=== PATIENT | female | born 1970 | race Caucasian/White ===

== ENCOUNTER 2019-02-16 17:19 | Emergency (ER) | payer MEDICAID ==
[~2019-02-16] VITALS: Ht 172.7 cm; Wt 129.6 kg
[~2019-02-16 17:19] MED LIST: BACDS PO; HYDR1TAB10 PO; NO HOME MEDS; POTA20TA19 PO; ZOF4T PO
[2019-02-16] MEDS ORDERED: ketorolac trometh. 30mg/ml inj. IM ONE (19:45)
[2019-02-16] MEDS ORDERED: orphenadrine citrate 60mg/2ml inj. IM ONE (19:55)
[2019-02-16] MEDS ORDERED: IBUP-1984 PO (20:48)
[2019-02-16] MEDS ORDERED: ORPH100T2 PO (20:48)
[2019-02-16 21:10] VITALS: BP 137/72
== END 2019-02-16 21:15 | disposition home or self-care (01) ==
LOC: ER 17:19
DX: M54.5 Low back pain (principal); Z88.0 Allergy status to penicillin; Z88.5 Allergy status to narcotic agent; Z88.6 Allergy status to analgesic agent
CPT/HCPCS: 72100; 96372; 99284; J1885; J2360

== ENCOUNTER 2021-07-18 16:35 | Inpatient (IN) | payer MEDICAID ==
[~2021-07-18] VITALS: Ht 172.7 cm; Wt 143.2 kg
[~2021-07-18 16:35] MED LIST changes: +ORPH100T2 PO; +POTA-207 PO; -POTA20TA19 PO; +iohexol 350MG/ML 100ml bottle IV ONE
[2021-07-18] MEDS ORDERED: ondansetron/PF 4mg/2ml inj IV ONE (17:10)
[2021-07-18] MEDS ORDERED: normal saline 1000ML IV soln IVB ONE (17:10)
[2021-07-18] MEDS ORDERED: normal saline 1000ml 1,000 ML IV ONE ×2 (17:10→19:50)
[2021-07-18] MEDS ORDERED: magnesium 2GM in 50ml NS 50 ML IV ONE (17:10)
[2021-07-18 17:33] LABS: CLARITY,URINE CLOUDY (Clear); COLOR,URINE YELLOW (Yellow); GLUCOSE, URINE NEGATIVE (Neg); KETONES,URINE 40 mg/dl (Neg); LEUKOCYTE ESTERASE ,URINE SMALL (Neg); NITRITES, URINE POSITIVE (Neg); OCCULT BLOOD,URINE NEGATIVE (Neg); PH,URINE 6.5 (4.8-8.0); PROTEIN,URINE 30 mg/dl (Neg)
[2021-07-18 17:45] LABS: UA COLLECTION TYPE STRAIGHT CATH
[2021-07-18 17:46] LABS: URINE AMPHETAMINE SCREEN NEGATIVE (Neg); URINE BARBITUATE SCREEN NEGATIVE (Neg); URINE BENZODIAZEPINES SCREEN NEGATIVE (Neg); URINE CANNABINOID SCREEN POSITIVE (Neg); URINE COCAINE SCREEN NEGATIVE (Neg); URINE METHADONE SCREEN NEGATIVE (Neg); URINE OPIATE SCREEN NEGATIVE (Neg); URINE PHENCYCLIDINE SCREEN NEGATIVE (Neg)
[2021-07-18 18:01] LABS: HYALINE CASTS >30 /LPF (NEGATIVE)
[2021-07-18 18:02] LABS: SQUAMOUS EPITHELIAL CELL,UR MODERATE /LPF (FEW); WBC,URINE 20-30 /HPF (0-4)
[2021-07-18 18:03] LABS: BACTERIA,URINE 3+ /HPF (Neg)
[2021-07-18 18:14] LABS: BASOPHILS % (AUTO) 0.3 % (0-1); EOSINOPHILS # (AUTO) 0.2 X10'3 (0-0.9); EOSINOPHILS % (AUTO) 2.4 % (0-6); HEMATOCRIT 33.9 % (35.0-45.0); HEMOGLOBIN 11.5 g/dl (12.0-16.0); LYMPHOCYTES # (AUTO) 0.7 X10'3 (1.1-4.8); MEAN CORPUSCULAR HEMOGLOBIN 29.1 PG (27.0-31.0); MEAN CORPUSCULAR HGB CONC 33.8 g/dL (33.0-36.5); MEAN CORPUSCULAR VOLUME 85.9 FL (78-98); MEAN PLATELET VOLUME 9.5 FL (7.4-10.4); MONOCYTES # (AUTO) 0.9 X10'3 (0-0.9); MONOCYTES % (AUTO) 9.4 % (2-12); NEUTROPHILS # (AUTO) 7.8 X10'3 (1.8-7.7); NEUTROPHILS % (AUTO) 80.9 % (42-75); PLATELET COUNT 204 X10'3 (140-440); RED BLOOD COUNT 3.95 X10'6 (4.20-5.60); RED CELL DISTRIBUTION WIDTH 13.6 % (11.5-14.5); WHITE BLOOD COUNT 9.6 X10'3 (4.5-11.0)
[2021-07-18 18:29] LABS: APTT 23 SECONDS (22-32); D-DIMER 7.53 MG/L FEU (0-0.50)
[2021-07-18 18:38] LABS: ALANINE AMINOTRANSFERASE 23 U/L (12-78); ALBUMIN 2.9 G/DL (3.4-5.0); ALBUMIN/GLOBULIN RATIO 0.7 (1.1-1.5); ALKALINE PHOSPHATASE 93 IU/L (46-116); ANION GAP 12 (8-16); ASPARTATE AMINO TRANSFERASE 17 U/L (10-37); BILIRUBIN,TOTAL 0.8 MG/DL (0.1-1.0); BLOOD UREA NITROGEN 14 MG/DL (7-18); BUN/CREATININE RATIO 20.6 (6.6-38.0); C-REACTIVE PROTEIN 2.76 MG/DL (0.0-0.5); CALCIUM 8.8 MG/DL (8.5-10.1); CHLORIDE 105 MMOL/L (99-107); CREATININE 0.68 MG/DL (0.40-0.90); GLUCOSE 92 MG/DL (70-104); LIPASE 67 U/L (73-393); MAGNESIUM 2.6 MG/DL (1.5-2.4); POTASSIUM 3.4 MMOL/L (3.5-5.1); SODIUM 139 MMOL/L (135-145); TOTAL CARBON DIOXIDE 22.1 MMOL/L (24-32); TOTAL PROTEIN 6.9 G/DL (6.4-8.2); eGFR > 90 ML/MIN
[2021-07-18] MEDS ORDERED: cefepime 1GM/NS ADD-VANTAGE 100 ML IV STA (21:21)
[2021-07-18] MEDS: potassium CL 10mEq/100ml bag 100 ML IV SCH (22:44)
[2021-07-18] MEDS ORDERED: magnesium 2GM in 50ml NS 50 ML IV PRN (22:45)
[2021-07-18] MEDS ORDERED: mag hydrox/Alum hydrox/simeth 30ml oral suspension PO PRN (22:45)
[2021-07-18] MEDS ORDERED: magnesium 4gm in 100ml NS 100 ML IV PRN (22:45)
[2021-07-18] MEDS ORDERED: potassium CL 10mEq/100ml bag 100 ML IV PRN (22:45)
[2021-07-18] MEDS ORDERED: ondansetron/PF 4mg/2ml inj IV PRN (22:45)
[2021-07-18] MEDS ORDERED: PERFLUTREN PROTEIN-A MICROSPHR (Optison) 0.22 MG/ML 3ML VIAL IV ONE (22:45)
[2021-07-18] MEDS ORDERED: magnesium Cl slow-release 64mg tablet PO PRN (22:45)
[2021-07-18] MEDS ORDERED: POTASSIUM BICARB 20meq eff tab 20 MEQ TABLET.EFF PO PRN (22:45)
[2021-07-18] MEDS ORDERED: magnesium hydroxide 30ml (MOM) UD suspension PO PRN (22:45)
[2021-07-18] MEDS ORDERED: cefTRIAXone 1g/NS 100ml IVPB 100 ML IV ONE (22:50)
[2021-07-18 23:12] LABS: MAGNESIUM 2.1 MG/DL (1.5-2.4); POTASSIUM 3.7 MMOL/L (3.5-5.1)
[2021-07-19] MEDS: potassium CL 10mEq/100ml bag 100 ML IV SCH (00:14)
[2021-07-19 00:59] VITALS: BP 129/54
[2021-07-19 01:50] LABS: BASOPHILS % (AUTO) 0.2 % (0-1); EOSINOPHILS # (AUTO) 0.1 X10'3 (0-0.9); EOSINOPHILS % (AUTO) 1.2 % (0-6); HEMATOCRIT 32.3 % (35.0-45.0); HEMOGLOBIN 10.9 g/dl (12.0-16.0); LYMPHOCYTES # (AUTO) 0.8 X10'3 (1.1-4.8); LYMPHOCYTES % (AUTO) 10.1 % (21-51); MEAN CORPUSCULAR HEMOGLOBIN 29.1 PG (27.0-31.0); MEAN CORPUSCULAR HGB CONC 33.8 g/dL (33.0-36.5); MEAN CORPUSCULAR VOLUME 86.1 FL (78-98); MEAN PLATELET VOLUME 9.2 FL (7.4-10.4); MONOCYTES # (AUTO) 0.8 X10'3 (0-0.9); MONOCYTES % (AUTO) 9.6 % (2-12); NEUTROPHILS # (AUTO) 6.3 X10'3 (1.8-7.7); NEUTROPHILS % (AUTO) 78.9 % (42-75); PLATELET COUNT 192 X10'3 (140-440); RED BLOOD COUNT 3.75 X10'6 (4.20-5.60); RED CELL DISTRIBUTION WIDTH 13.6 % (11.5-14.5); WHITE BLOOD COUNT 7.9 X10'3 (4.5-11.0)
[2021-07-19 02:05] LABS: ALANINE AMINOTRANSFERASE 18 U/L (12-78); ALBUMIN 2.7 G/DL (3.4-5.0); ALBUMIN/GLOBULIN RATIO 0.7 (1.1-1.5); ALKALINE PHOSPHATASE 89 IU/L (46-116); ANION GAP 8 (8-16); ASPARTATE AMINO TRANSFERASE 12 U/L (10-37); BILIRUBIN,TOTAL 0.4 MG/DL (0.1-1.0); BLOOD UREA NITROGEN 13 MG/DL (7-18); BUN/CREATININE RATIO 21.3 (6.6-38.0); CHLORIDE 106 MMOL/L (99-107); CREATININE 0.61 MG/DL (0.40-0.90); GLUCOSE 87 MG/DL (70-104); POTASSIUM 3.9 MMOL/L (3.5-5.1); SODIUM 136 MMOL/L (135-145); TOTAL CARBON DIOXIDE 22.2 MMOL/L (24-32); TOTAL PROTEIN 6.5 G/DL (6.4-8.2); eGFR > 90 ML/MIN
[2021-07-19 02:07] LABS: MAGNESIUM 1.8 MG/DL (1.5-2.4)
[2021-07-19] MEDS: sodium bicarbonate (8.4%) inj. 100 MEQ in dextrose 5%-water 1,000 ML IV SCH ×3 (02:46→20:50)
[2021-07-19] MEDS ORDERED: GABA600T13 PO (04:09)
[2021-07-19] MEDS ORDERED: FERR325T28 PO (04:09)
[2021-07-19] MEDS ORDERED: TIZA4TAB11 PO (04:09)
[2021-07-19] MEDS ORDERED: IBUP-1984 PO (04:09)
[2021-07-19] MEDS ORDERED: ALB0.5UD IH (04:09)
[2021-07-19] MEDS ORDERED: FERR324T PO (05:14)
[2021-07-19 06:00] VITALS: BP 124/62
[2021-07-19] MEDS: ferrous gluconate 324mg tablet PO SCH ×2 (08:00→23:01)
[2021-07-19 10:00] VITALS: BP 112/24
[2021-07-19] MEDS: gabapentin 300mg capsule PO SCH (10:30)
[2021-07-19] MEDS: cefTRIAXone 1g/NS 100ml IVPB 100 ML IV SCH (10:30)
[2021-07-19] MEDS: heparin, porcine 5000 units/ml vial SQ SCH ×2 (10:33→19:57)
--- NOTE | 2021-07-19 15:20 | NUR ---
PRESSURE ULCER EDUCATION: DEFINITION: A pressure ulcer is an area of skin that breaks down when you stay in one position too long. The constant pressure against the skin reduces the blood flow to that area and the affected tissue dies. CAUSES: "Being bedridden or in a wheelchair "Fragile skin "Having a chronic condition, such as diabetes or vascular disease "Inability to move certain parts of your body without assistance "Older age "Incontinence of urine or stool SYMPTOMS: "A reddened area that DOES NOT turn white when pressed on - this can be the beginning of a pressure ulcer "A blister, deep sore or a crater - these can be advanced pressure ulcers FIRST AID: "Relieve the pressure on this area "Keep the area clean and dry "Call your primary doctor if you see any of the above symptoms "DO NOT massage the area "DO NOT use a donut shaped or ring shaped pillow- these actually interfere with the blood flow and cause complications PREVENTION: "Check for pressure ulcers everyday "Change position at least every two hours to relieve pressure "Use items that help relieve pressure- pillows, sheepskin, foam padding, and powders. "Keep skin clean and dry "Eat healthy well balanced meals "Exercise daily IF YOU SEE ANY OF THESE SYMPTOMS WHILE IN THE HOSPITAL - TELL YOUR NURSE IMMEDIATELY. IF YOU SEE ANY OF THESE SYMPTOMS WHILE AT HOME OR HAVE ANY QUESTIONS OR CONCERNS ABOUT PRESSURE ULCERS - CALL YOUR PRIMARY DOCTOR IMMEDIATELY. Addendum: 07/19/21 at 1520 by Belgica Foley LVN Amended: Links added.
[2021-07-19] MEDS ORDERED: pneumococcal 23-VAL P-sac vacc 25 mcg/0.5ml vial IMVAC ONE (16:00)
[2021-07-19 18:00] VITALS: BP 94/42
--- NOTE | 2021-07-19 19:03 | NUR ---
Problems reprioritized. Patient report given, questions answered & plan of care reviewed with Ann Marie GRANADO.
[2021-07-19] MEDS: tizanidine 4mg tablet PO SCH (19:57)
[2021-07-19] MEDS: docusate sod 100mg capsule PO SCH ×2 (20:00→20:10)
[2021-07-19] MEDS: K and/or MAG REPLACEMENT MC SCH (20:00)
[2021-07-19 22:00] VITALS: BP 116/55
[2021-07-20 02:00] VITALS: BP 139/53
[2021-07-20 05:00] VITALS: BP 139/62
[2021-07-20] MEDS: sodium bicarbonate (8.4%) inj. 100 MEQ in dextrose 5%-water 1,000 ML IV SCH ×2 (05:06→07:42)
[2021-07-20 06:17] LABS: BASOPHILS % (AUTO) 0.5 % (0-1); EOSINOPHILS # (AUTO) 0.2 X10'3 (0-0.9); EOSINOPHILS % (AUTO) 4.3 % (0-6); HEMATOCRIT 30.1 % (35.0-45.0); HEMOGLOBIN 10.1 g/dl (12.0-16.0); LYMPHOCYTES % (AUTO) 20.4 % (21-51); MEAN CORPUSCULAR HEMOGLOBIN 28.7 PG (27.0-31.0); MEAN CORPUSCULAR HGB CONC 33.4 g/dL (33.0-36.5); MEAN CORPUSCULAR VOLUME 85.9 FL (78-98); MEAN PLATELET VOLUME 9.4 FL (7.4-10.4); MONOCYTES # (AUTO) 0.8 X10'3 (0-0.9); MONOCYTES % (AUTO) 16.8 % (2-12); NEUTROPHILS # (AUTO) 2.7 X10'3 (1.8-7.7); PLATELET COUNT 176 X10'3 (140-440); RED BLOOD COUNT 3.51 X10'6 (4.20-5.60); RED CELL DISTRIBUTION WIDTH 14.1 % (11.5-14.5); WHITE BLOOD COUNT 4.7 X10'3 (4.5-11.0)
[2021-07-20 06:19] LABS: ALANINE AMINOTRANSFERASE 18 U/L (12-78); ALBUMIN 2.4 G/DL (3.4-5.0); ALBUMIN/GLOBULIN RATIO 0.7 (1.1-1.5); ALKALINE PHOSPHATASE 77 IU/L (46-116); ANION GAP 6 (8-16); ASPARTATE AMINO TRANSFERASE 12 U/L (10-37); BILIRUBIN,TOTAL 0.2 MG/DL (0.1-1.0); BLOOD UREA NITROGEN 7 MG/DL (7-18); BUN/CREATININE RATIO 11.1 (6.6-38.0); CHLORIDE 104 MMOL/L (99-107); CREATININE 0.63 MG/DL (0.40-0.90); GLUCOSE 96 MG/DL (70-104); MAGNESIUM 1.8 MG/DL (1.5-2.4); POTASSIUM 3.4 MMOL/L (3.5-5.1); SODIUM 139 MMOL/L (135-145); eGFR > 90 ML/MIN
--- NOTE | 2021-07-20 06:50 | NUR ---
Patient in room ORTHO 4011. I have received report from Ann Marie GRANADO and had the opportunity to ask questions and assume patient care.
[2021-07-20] MEDS: K and/or MAG REPLACEMENT MC SCH ×2 (07:33→20:00)
[2021-07-20 07:37] LABS: LARGE PLATELETS FEW; PLATELET ESTIMATE NORMAL; TOTAL CELLS COUNTED 100
[2021-07-20] MEDS: cefTRIAXone 1g/NS 100ml IVPB 100 ML IV SCH (07:43)
[2021-07-20] MEDS: ferrous gluconate 324mg tablet PO SCH ×2 (07:44→19:58)
[2021-07-20] MEDS: docusate sod 100mg capsule PO SCH ×2 (07:44→19:57)
[2021-07-20] MEDS: gabapentin 300mg capsule PO SCH (07:44)
[2021-07-20] MEDS: heparin, porcine 5000 units/ml vial SQ SCH ×2 (07:45→20:00)
[2021-07-20] MEDS: POTASSIUM BICARB 20meq eff tab 20 MEQ TABLET.EFF PO PRN ×3 (07:45→16:37)
[2021-07-20 10:00] VITALS: BP 126/49
[2021-07-20 14:00] VITALS: BP 130/67
[2021-07-20 18:00] VITALS: BP 112/50
--- NOTE | 2021-07-20 18:35 | NUR ---
Problems reprioritized. Patient report given, questions answered & plan of care reviewed with Chelsea GRANADO.
[2021-07-20] MEDS: tizanidine 4mg tablet PO SCH (20:00)
[2021-07-20 22:00] VITALS: BP 147/78
[2021-07-21 06:00] VITALS: BP 117/63
--- NOTE | 2021-07-21 06:14 | NUR ---
Patient in room ORTHO 4011. I have received report from Chelsea GRANADO and had the opportunity to ask questions and assume patient care.
--- NOTE | 2021-07-21 06:29 | NUR ---
Problems reprioritized. Patient report given, questions answered & plan of care reviewed with Eileen GRANADO.
[2021-07-21 06:31] LABS: BASOPHILS % (AUTO) 0.8 % (0-1); EOSINOPHILS # (AUTO) 0.2 X10'3 (0-0.9); EOSINOPHILS % (AUTO) 4.9 % (0-6); HEMATOCRIT 34.3 % (35.0-45.0); HEMOGLOBIN 11.1 g/dl (12.0-16.0); LYMPHOCYTES # (AUTO) 0.9 X10'3 (1.1-4.8); LYMPHOCYTES % (AUTO) 19.1 % (21-51); MEAN CORPUSCULAR HGB CONC 32.4 g/dL (33.0-36.5); MEAN CORPUSCULAR VOLUME 89.4 FL (78-98); MEAN PLATELET VOLUME 9.2 FL (7.4-10.4); MONOCYTES # (AUTO) 0.8 X10'3 (0-0.9); NEUTROPHILS # (AUTO) 2.9 X10'3 (1.8-7.7); NEUTROPHILS % (AUTO) 59.2 % (42-75); PLATELET COUNT 181 X10'3 (140-440); RED BLOOD COUNT 3.84 X10'6 (4.20-5.60); RED CELL DISTRIBUTION WIDTH 14.2 % (11.5-14.5); WHITE BLOOD COUNT 4.9 X10'3 (4.5-11.0)
[2021-07-21 07:09] LABS: ALANINE AMINOTRANSFERASE 19 U/L (12-78); ALBUMIN 2.6 G/DL (3.4-5.0); ALBUMIN/GLOBULIN RATIO 0.7 (1.1-1.5); ALKALINE PHOSPHATASE 84 IU/L (46-116); ANION GAP 10 (8-16); ASPARTATE AMINO TRANSFERASE 16 U/L (10-37); BILIRUBIN,TOTAL 0.3 MG/DL (0.1-1.0); BLOOD UREA NITROGEN 7 MG/DL (7-18); BUN/CREATININE RATIO 11.3 (6.6-38.0); CALCIUM 8.5 MG/DL (8.5-10.1); CHLORIDE 104 MMOL/L (99-107); CREATININE 0.62 MG/DL (0.40-0.90); GLUCOSE 87 MG/DL (70-104); MAGNESIUM 1.9 MG/DL (1.5-2.4); POTASSIUM 3.9 MMOL/L (3.5-5.1); SODIUM 141 MMOL/L (135-145); TOTAL PROTEIN 6.5 G/DL (6.4-8.2); eGFR > 90 ML/MIN
[2021-07-21] MEDS: K and/or MAG REPLACEMENT MC SCH ×2 (07:36→20:00)
[2021-07-21] MEDS: cefTRIAXone 1g/NS 100ml IVPB 100 ML IV SCH (07:39)
[2021-07-21] MEDS: gabapentin 300mg capsule PO SCH (07:40)
[2021-07-21] MEDS: ferrous gluconate 324mg tablet PO SCH ×2 (07:40→19:10)
[2021-07-21] MEDS: docusate sod 100mg capsule PO SCH ×2 (07:40→19:10)
[2021-07-21] MEDS: heparin, porcine 5000 units/ml vial SQ SCH ×2 (07:41→19:10)
[2021-07-21 10:00] VITALS: BP 132/54
[2021-07-21 12:02] LABS: D-DIMER 5.04 MG/L FEU (0-0.50)
[2021-07-21 18:00] VITALS: BP 119/52
[2021-07-21] MEDS: tizanidine 4mg tablet PO SCH (20:54)
[2021-07-21 22:00] VITALS: BP 147/73
--- NOTE | 2021-07-22 06:12 | NUR ---
Problems reprioritized. Patient report given, questions answered & plan of care reviewed with Corrine GRANADO. Addendum: 07/22/21 at 0613 by Marisela Robledo RN Amended: Links added.
[2021-07-22 06:30] VITALS: BP 142/75
[2021-07-22 07:00] LABS: BASOPHILS % (AUTO) 0.8 % (0-1); EOSINOPHILS # (AUTO) 0.3 X10'3 (0-0.9); EOSINOPHILS % (AUTO) 5.2 % (0-6); LYMPHOCYTES # (AUTO) 0.9 X10'3 (1.1-4.8); MEAN CORPUSCULAR HEMOGLOBIN 28.8 PG (27.0-31.0); MEAN CORPUSCULAR HGB CONC 33.4 g/dL (33.0-36.5); MEAN CORPUSCULAR VOLUME 86.2 FL (78-98); MEAN PLATELET VOLUME 9.3 FL (7.4-10.4); MONOCYTES # (AUTO) 0.7 X10'3 (0-0.9); NEUTROPHILS # (AUTO) 3.6 X10'3 (1.8-7.7); PLATELET COUNT 201 X10'3 (140-440); RED BLOOD COUNT 3.82 X10'6 (4.20-5.60); RED CELL DISTRIBUTION WIDTH 14.2 % (11.5-14.5); WHITE BLOOD COUNT 5.5 X10'3 (4.5-11.0)
[2021-07-22 07:16] LABS: ALANINE AMINOTRANSFERASE 18 U/L (12-78); ALBUMIN 2.7 G/DL (3.4-5.0); ALBUMIN/GLOBULIN RATIO 0.7 (1.1-1.5); ALKALINE PHOSPHATASE 88 IU/L (46-116); ANION GAP 6 (8-16); ASPARTATE AMINO TRANSFERASE 19 U/L (10-37); BILIRUBIN,TOTAL 0.4 MG/DL (0.1-1.0); BLOOD UREA NITROGEN 8 MG/DL (7-18); BUN/CREATININE RATIO 11.6 (6.6-38.0); CALCIUM 8.5 MG/DL (8.5-10.1); CHLORIDE 105 MMOL/L (99-107); CREATININE 0.69 MG/DL (0.40-0.90); GLUCOSE 88 MG/DL (70-104); POTASSIUM 4.2 MMOL/L (3.5-5.1); SODIUM 138 MMOL/L (135-145); TOTAL CARBON DIOXIDE 26.6 MMOL/L (24-32); TOTAL PROTEIN 6.6 G/DL (6.4-8.2); eGFR > 90 ML/MIN
[2021-07-22] MEDS: cefTRIAXone 1g/NS 100ml IVPB 100 ML IV SCH (08:00)
[2021-07-22] MEDS: K and/or MAG REPLACEMENT MC SCH (08:00)
[2021-07-22] MEDS: ferrous gluconate 324mg tablet PO SCH (08:42)
[2021-07-22] MEDS: gabapentin 300mg capsule PO SCH (08:42)
[2021-07-22] MEDS: heparin, porcine 5000 units/ml vial SQ SCH (08:42)
[2021-07-22] MEDS: docusate sod 100mg capsule PO SCH (08:42)
--- NOTE | 2021-07-22 09:05 | NUR ---
PAGER ID: [phone] MESSAGE: [phone] Clint N: pt has no IV access for Rocephin, shes refusing another one if she will be going home today. thanks! noemy [id number]
[2021-07-22 11:11] VITALS: BP 107/60
[2021-07-22] MEDS ORDERED: CIPR-259 PO (11:44)
[2021-07-22] MEDS ORDERED: TIZA4TAB11 PO (12:13)
--- NOTE | 2021-07-22 12:32 | NUR ---
Patient stable and appropriate for discharge home with significant other. IV removed, all belongings taken from room. New RX e-scripted to preferred pharmacy. All discharge instructions and education given and reviewed with patient, all questions answered.
== END 2021-07-22 12:40 | disposition home or self-care (01) | DRG 347 ==
LOC: ER 16:36 → ED HOLD 22:47 → EDBEDREQ 23:14 → ORTHO 4S 07-19 00:42
PROVIDERS: ADMIT Internal Medicine; ATTEND Family Medicine
PROC: B3251ZZ Computerized Tomography (CT Scan) of Bilateral Common Carotid Arteries using Low Osmolar Contrast (ICD-10-PCS; 2021-07-18)
PROC: B32G1ZZ Computerized Tomography (CT Scan) of Bilateral Vertebral Arteries using Low Osmolar Contrast (ICD-10-PCS; 2021-07-18)
PROC: B32R1ZZ Computerized Tomography (CT Scan) of Intracranial Arteries using Low Osmolar Contrast (ICD-10-PCS; 2021-07-18)
PROC: B3281ZZ Computerized Tomography (CT Scan) of Bilateral Internal Carotid Arteries using Low Osmolar Contrast (ICD-10-PCS; 2021-07-18)
PROC: B32T1ZZ Computerized Tomography (CT Scan) of Left Pulmonary Artery using Low Osmolar Contrast (ICD-10-PCS; 2021-07-18)
PROC: B3201ZZ Computerized Tomography (CT Scan) of Thoracic Aorta using Low Osmolar Contrast (ICD-10-PCS; 2021-07-18)
PROC: B32S1ZZ Computerized Tomography (CT Scan) of Right Pulmonary Artery using Low Osmolar Contrast (ICD-10-PCS; 2021-07-18)
PROC: 3E0234Z Introduction of Serum, Toxoid and Vaccine into Muscle, Percutaneous Approach (ICD-10-PCS; principal; 2021-07-19)
DX: M48.02 Spinal stenosis, cervical region (principal); E66.01 Morbid (severe) obesity due to excess calories; E87.6 Hypokalemia; G89.29 Other chronic pain; M47.892 Other spondylosis, cervical region; N39.0 Urinary tract infection, site not specified; T50.995A Adverse effect of other drugs, medicaments and biological substances, initial encounter; B96.20 Unspecified Escherichia coli [E. coli] as the cause of diseases classified elsewhere; Z20.822 Contact with and (suspected) exposure to COVID-19; R20.2 Paresthesia of skin; R00.1 Bradycardia, unspecified; R59.0 Localized enlarged lymph nodes; R79.89 Other specified abnormal findings of blood chemistry; Z68.42 Body mass index [BMI] 45.0-49.9, adult; Z23 Encounter for immunization; Z88.0 Allergy status to penicillin; Z88.5 Allergy status to narcotic agent; Z79.899 Other long term (current) drug therapy; Y92.89 Other specified places as the place of occurrence of the external cause
CPT/HCPCS: 36415; 70496; 70498; 71045; 71275; 80053; 80305; 81001; 82948; 83605; 83690; 83735; 84132; 84145; 84484; 85007; 85025; 85379; 85610; 85730; 86140; 87040; 87077; 87081; 87088; 87186; 90732; 93306; 93970; 96361; 96365; 96375; 97161; 97530; 99285; A6154; G0378; J0692; J0696; J1644; J2405; J3475; J3480; J3490; J7030; J7070; Q9967

== ENCOUNTER 2022-01-09 13:11 | Inpatient (IN) | payer MEDICAID ==
[~2022-01-09] VITALS: Ht 172.7 cm; Wt 119.6 kg
[~2022-01-09 13:11] MED LIST changes: +ALB0.5UD IH; -BACDS PO; +FERR324T PO; +GABA600T13 PO; -HYDR1TAB10 PO; +IBUP-1984 PO; -NO HOME MEDS; -ORPH100T2 PO; -POTA-207 PO; +TIZA4TAB11 PO; -ZOF4T PO; -iohexol 350MG/ML 100ml bottle IV ONE
[2022-01-09] MEDS ORDERED: ondansetron/PF 4mg/2ml inj IV ONE (13:35)
[2022-01-09] MEDS ORDERED: normal saline 1000ML IV soln IVB ONE ×2 (13:35→18:15)
--- NOTE | 2022-01-09 14:30 | NUR ---
pt has breakdown, redness and purulent drainage coming from under left breast. per family hasn't noticed breakdown. Upon placing bang pt has dried blood to perineum.
[2022-01-09 15:22] LABS: EOSINOPHILS # (AUTO) 0.4 X10'3 (0-0.9); EOSINOPHILS % (AUTO) 0.7 % (0-6); RED CELL DISTRIBUTION WIDTH 18.3 % (11.5-14.5)
[2022-01-09 15:25] LABS: BASOPHILS # (AUTO) 0.4 X10'3 (0-0.2); BASOPHILS % (AUTO) 0.7 % (0-1); HEMATOCRIT 30.1 % (35.0-45.0); HEMOGLOBIN 9.8 g/dl (12.0-16.0); LYMPHOCYTES # (AUTO) 5.6 X10'3 (1.1-4.8); MEAN CORPUSCULAR HEMOGLOBIN 26.4 PG (27.0-31.0); MEAN CORPUSCULAR HGB CONC 32.6 g/dL (33.0-36.5); MEAN CORPUSCULAR VOLUME 81.1 FL (78-98); MEAN PLATELET VOLUME 9.1 FL (7.4-10.4); MONOCYTES # (AUTO) 2.6 X10'3 (0-0.9); MONOCYTES % (AUTO) 4.6 % (2-12); NEUTROPHILS # (AUTO) 47.3 X10'3 (1.8-7.7); PLATELET COUNT 134 X10'3 (140-440); RED BLOOD COUNT 3.71 X10'6 (4.20-5.60)
[2022-01-09 15:27] LABS: WHITE BLOOD COUNT 56.3 X10'3 (4.5-11.0)
[2022-01-09] MEDS ORDERED: CefTRIAXone 2gm/D5W 50ml BAG 50 ML IV ONE (15:35)
[2022-01-09 15:36] LABS: ALANINE AMINOTRANSFERASE 22 U/L (12-78); ALBUMIN 1.5 G/DL (3.4-5.0); ALKALINE PHOSPHATASE 339 IU/L (46-116); ANION GAP 20 (8-16); BLOOD UREA NITROGEN 102 MG/DL (7-18); BUN/CREATININE RATIO 30.1 (6.6-38.0); CALCIUM 8.4 MG/DL (8.5-10.1); CHLORIDE 98 MMOL/L (99-107); CREATININE 3.39 MG/DL (0.40-0.90); GLUCOSE 126 MG/DL (70-104); LIPASE < 50 U/L (73-393); SODIUM 131 MMOL/L (135-145); eGFR 14 ML/MIN
[2022-01-09 15:37] LABS: TOTAL CARBON DIOXIDE 12.9 MMOL/L (24-32)
[2022-01-09 15:41] LABS: ALBUMIN/GLOBULIN RATIO 0.3 (1.1-1.5); ASPARTATE AMINO TRANSFERASE 44 U/L (10-37); POTASSIUM 4.4 MMOL/L (3.5-5.1); TOTAL PROTEIN 6.2 G/DL (6.4-8.2)
[2022-01-09 15:44] LABS: ANISOCYTOSIS 2+; PLATELET ESTIMATE DECREASED; TOTAL CELLS COUNTED 100
[2022-01-09 15:55] LABS: CLARITY,URINE BLOODY (Clear); COLOR,URINE RED (Yellow); UA COLLECTION TYPE FOLEY CATH
[2022-01-09] MEDS ORDERED: vancomycin/NS 1 GM ADD-VANTAGE 250 ML IV ONE (15:55)
[2022-01-09 16:02] LABS: BACTERIA,URINE 4+ /HPF (Neg); RBC,URINE 50-100 /HPF (0-2); WBC,URINE TNTC /HPF (0-4)
[2022-01-09 16:04] LABS: SQUAMOUS EPITHELIAL CELL,UR FEW /LPF (FEW)
[2022-01-09 16:05] LABS: MUCUS STRANDS MODERATE /LPF (Neg); WBC CLUMPS,URINE MODERATE /HPF (NEGATIVE)
[2022-01-09] MEDS ORDERED: NAPR220T67 PO (16:10)
[2022-01-09] MEDS ORDERED: IBUP-1984 PO (16:10)
[2022-01-09] MEDS ORDERED: NORepinephrine inj. 32 MG in normal saline 250ml IV soln 218 ML IV SCH (16:25)
[2022-01-09] MEDS ORDERED: NORepinephrine 8mg/ 250ml NS 250 ML IV ONE (16:33)
[2022-01-09 16:44] LABS: ETHANOL < 0.010 GM/DL (0.0-0.010)
[2022-01-09] MEDS ORDERED: normal saline 1000ml 1,000 ML IV STA (16:45)
[2022-01-09 16:58] LABS: BILIRUBIN,DIRECT 5.1 MG/DL (0-0.3)
[2022-01-09] MEDS: NORepinephrine 8mg/ 250ml NS 250 ML IV SCH (17:01)
[2022-01-09] MEDS ORDERED: normal saline 1000ml 1,000 ML IV ONE (17:45)
[2022-01-09] MEDS ORDERED: POTASSIUM BICARB 20meq eff tab 20 MEQ TABLET.EFF PO PRN (18:15)
[2022-01-09] MEDS ORDERED: mag hydrox/Alum hydrox/simeth 30ml oral suspension PO PRN (18:15)
[2022-01-09] MEDS ORDERED: ondansetron/PF 4mg/2ml inj IV PRN (18:15)
[2022-01-09] MEDS ORDERED: acetaminophen 325mg tablet PO PRN (18:15)
[2022-01-09] MEDS: normal saline 1000ml 1,000 ML IV SCH (18:15)
[2022-01-09] MEDS ORDERED: LIDOcaine 2% 10ml TOPICAL JELLY (Urojet) TP ONE (18:15)
[2022-01-09] MEDS ORDERED: LIDOcaine 1% 30ml preserv. free vial IJ ONE (18:40)
[2022-01-09] MEDS ORDERED: vancomycin inj 500 MG in normal saline 100ml IV soln 100 ML IV SCH (18:40)
[2022-01-09 19:13] LABS: URINE AMPHETAMINE SCREEN NEGATIVE (Neg); URINE BARBITUATE SCREEN NEGATIVE (Neg); URINE BENZODIAZEPINES SCREEN NEGATIVE (Neg); URINE CANNABINOID SCREEN NEGATIVE (Neg); URINE COCAINE SCREEN NEGATIVE (Neg); URINE METHADONE SCREEN NEGATIVE (Neg); URINE OPIATE SCREEN NEGATIVE (Neg); URINE PHENCYCLIDINE SCREEN NEGATIVE (Neg)
[2022-01-09] MEDS: famotidine/PF 10 mg/ml inj IV SCH (20:00)
[2022-01-09] MEDS: heparin, porcine 5000 units/ml vial SQ SCH (20:00)
[2022-01-09] MEDS: hydrocortisone sod succ/PF 100mg/2ml inj. IV SCH (20:00)
[2022-01-09] MEDS: sennosides/docusate sodium tablet PO SCH (21:00)
[2022-01-10] MEDS: hydrocortisone sod succ/PF 100mg/2ml inj. IV SCH ×4 (02:00→21:23)
[2022-01-10] MEDS: NORepinephrine 8mg/ 250ml NS 250 ML IV SCH ×3 (02:23→21:27)
[2022-01-10 05:43] LABS: BASOPHILS # (AUTO) 0.1 X10'3 (0-0.2); BASOPHILS % (AUTO) 0.2 % (0-1); EOSINOPHILS # (AUTO) 0.7 X10'3 (0-0.9); EOSINOPHILS % (AUTO) 1.1 % (0-6); HEMATOCRIT 28.9 % (35.0-45.0); HEMOGLOBIN 9.3 g/dl (12.0-16.0); LYMPHOCYTES # (AUTO) 2.3 X10'3 (1.1-4.8); LYMPHOCYTES % (AUTO) 3.7 % (21-51); MEAN CORPUSCULAR HEMOGLOBIN 26.3 PG (27.0-31.0); MEAN CORPUSCULAR HGB CONC 32.1 g/dL (33.0-36.5); MEAN CORPUSCULAR VOLUME 81.8 FL (78-98); MEAN PLATELET VOLUME 9.3 FL (7.4-10.4); MONOCYTES # (AUTO) 2.1 X10'3 (0-0.9); MONOCYTES % (AUTO) 3.4 % (2-12); NEUTROPHILS # (AUTO) 55.6 X10'3 (1.8-7.7); NEUTROPHILS % (AUTO) 91.6 % (42-75); PLATELET COUNT 135 X10'3 (140-440); RED BLOOD COUNT 3.53 X10'6 (4.20-5.60); RED CELL DISTRIBUTION WIDTH 18.8 % (11.5-14.5)
[2022-01-10 05:48] LABS: WHITE BLOOD COUNT 60.8 X10'3 (4.5-11.0)
[2022-01-10 06:11] LABS: ALANINE AMINOTRANSFERASE 22 U/L (12-78); ALBUMIN 1.5 G/DL (3.4-5.0); ALKALINE PHOSPHATASE 277 IU/L (46-116); ANION GAP 17 (8-16); ASPARTATE AMINO TRANSFERASE 40 U/L (10-37); BILIRUBIN,TOTAL 6.7 MG/DL (0.1-1.0); BLOOD UREA NITROGEN 93 MG/DL (7-18); CALCIUM 7.6 MG/DL (8.5-10.1); CHLORIDE 103 MMOL/L (99-107); CREATININE 2.66 MG/DL (0.40-0.90); GLUCOSE 124 MG/DL (70-104); SODIUM 134 MMOL/L (135-145); eGFR 19 ML/MIN
[2022-01-10 06:12] LABS: TOTAL CARBON DIOXIDE 13.7 MMOL/L (24-32)
[2022-01-10 06:13] LABS: ALBUMIN/GLOBULIN RATIO 0.3 (1.1-1.5); PHOSPHORUS 4.7 MG/DL (2.3-4.5); TOTAL PROTEIN 6.1 G/DL (6.4-8.2)
[2022-01-10 06:35] LABS: ANISOCYTOSIS 2+; PLATELET ESTIMATE DECREASED; SMUDGE CELLS 1+; TOTAL CELLS COUNTED 100
[2022-01-10 06:37] LABS: HYPOCHROMASIA 1+; SCHISTOCYTES FEW; TARGET CELLS FEW
[2022-01-10] MEDS: ringers solution, lacted 1,000 ML IV SCH ×2 (08:46→17:52)
[2022-01-10] MEDS: clindamycin 300mg/D5W 50mL 50 ML IV SCH ×3 (09:33→21:32)
[2022-01-10] MEDS: cefepime 1GM/NS ADD-VANTAGE 100 ML IV SCH (09:33)
[2022-01-10] MEDS: famotidine/PF 10 mg/ml inj IV SCH ×2 (09:34→21:23)
[2022-01-10] MEDS: heparin, porcine 5000 units/ml vial SQ SCH ×2 (09:50→21:32)
[2022-01-10] MEDS: normal saline 1000ml 1,000 ML IV SCH ×2 (09:53→20:55)
[2022-01-10] MEDS: K and/or MAG REPLACEMENT MC SCH (10:02)
--- NOTE | 2022-01-10 14:53 | NUR ---
pt denies needs at this time. boyfriend at bedside. will continue to monitor
[2022-01-10] MEDS ORDERED: vancomycin inj 500 MG in normal saline 100ml IV soln 100 ML IV SCH (16:00)
[2022-01-10] MEDS: VANCOMYCIN 750MG IV in NS 250 ML IV SCH (16:10)
--- NOTE | 2022-01-10 17:27 | NUR ---
PT PLACED ON HOSPITAL BED - PT HAD LARGE SOFT BM DARK BROWN IN COLOR - PT CLEANED UP AND DRY FLOW PLACED UNDER PT - WOUNDS PHOTOGRAPHED AND PLACED IN CHART. PT DENIES ADDITIONAL NEEDS AT THIS TIME.
[2022-01-10] MEDS: sennosides/docusate sodium tablet PO SCH (21:24)
[2022-01-11] MEDS: ringers solution, lacted 1,000 ML IV SCH ×2 (02:15→12:15)
[2022-01-11] MEDS: hydrocortisone sod succ/PF 100mg/2ml inj. IV SCH ×3 (04:24→14:18)
[2022-01-11] MEDS: clindamycin 300mg/D5W 50mL 50 ML IV SCH ×4 (05:01→19:31)
[2022-01-11 05:32] LABS: BASOPHILS # (AUTO) 0.1 X10'3 (0-0.2); BASOPHILS % (AUTO) 0.6 % (0-1); EOSINOPHILS # (AUTO) 0.1 X10'3 (0-0.9); EOSINOPHILS % (AUTO) 0.3 % (0-6); HEMATOCRIT 23.9 % (35.0-45.0); HEMOGLOBIN 7.8 g/dl (12.0-16.0); LYMPHOCYTES # (AUTO) 0.4 X10'3 (1.1-4.8); LYMPHOCYTES % (AUTO) 1.8 % (21-51); MEAN CORPUSCULAR HEMOGLOBIN 26.5 PG (27.0-31.0); MEAN CORPUSCULAR HGB CONC 32.5 g/dL (33.0-36.5); MEAN CORPUSCULAR VOLUME 81.5 FL (78-98); MEAN PLATELET VOLUME 9.6 FL (7.4-10.4); MONOCYTES # (AUTO) 1.5 X10'3 (0-0.9); MONOCYTES % (AUTO) 6.1 % (2-12); NEUTROPHILS # (AUTO) 22.2 X10'3 (1.8-7.7); NEUTROPHILS % (AUTO) 91.2 % (42-75); PLATELET COUNT 81 X10'3 (140-440); RED BLOOD COUNT 2.94 X10'6 (4.20-5.60); RED CELL DISTRIBUTION WIDTH 18.8 % (11.5-14.5); WHITE BLOOD COUNT 24.3 X10'3 (4.5-11.0)
[2022-01-11 05:50] LABS: ALANINE AMINOTRANSFERASE 15 U/L (12-78); ALBUMIN 1.3 G/DL (3.4-5.0); ALBUMIN/GLOBULIN RATIO 0.3 (1.1-1.5); ALKALINE PHOSPHATASE 210 IU/L (46-116); ANION GAP 13 (8-16); ASPARTATE AMINO TRANSFERASE 27 U/L (10-37); BILIRUBIN,TOTAL 2.5 MG/DL (0.1-1.0); BLOOD UREA NITROGEN 102 MG/DL (7-18); BUN/CREATININE RATIO 39.4 (6.6-38.0); CALCIUM 7.5 MG/DL (8.5-10.1); CHLORIDE 105 MMOL/L (99-107); CREATININE 2.59 MG/DL (0.40-0.90); FERRITIN 661 NG/ML (8-252); GLUCOSE 101 MG/DL (70-104); MAGNESIUM 2.1 MG/DL (1.5-2.4); PHOSPHORUS 6.4 MG/DL (2.3-4.5); POTASSIUM 4.4 MMOL/L (3.5-5.1); SODIUM 134 MMOL/L (135-145); TOTAL CARBON DIOXIDE 16.4 MMOL/L (24-32); TOTAL PROTEIN 5.4 G/DL (6.4-8.2); eGFR 20 ML/MIN
[2022-01-11 06:22] LABS: % IRON SATURATION 90 % (11-46); IRON 123 UG/DL (49-151); TOTAL IRON BINDING CAPACITY 136 UG/DL (259-388)
[2022-01-11] MEDS: NORepinephrine 8mg/ 250ml NS 250 ML IV SCH (06:59)
[2022-01-11] MEDS ORDERED: fluconazole 100mg tablet PO ONE (08:00)
[2022-01-11] MEDS: K and/or MAG REPLACEMENT MC SCH (08:00)
--- NOTE | 2022-01-11 08:47 | NUR ---
Pt recently admitied from ED Hold. This Pts Clindamycin and Cefepime GTT are not located on PCU. Will PHARM please bring these medications up. Thanks -Charmaine EXT [id number]
[2022-01-11] MEDS: famotidine/PF 10 mg/ml inj IV SCH (08:52)
--- NOTE | 2022-01-11 09:08 | NUR ---
PAGER ID: [phone] MESSAGE: Rose Jaramillo [id number]. This Pts PLT are 81, yesterday PLT were 135. Do you want the SQ Heparin held? -Charmaine EXT [id number]
[2022-01-11] MEDS: normal saline 1000ml 1,000 ML IV SCH ×2 (10:15→19:31)
[2022-01-11] MEDS: cefepime 1GM/NS ADD-VANTAGE 100 ML IV SCH (11:06)
--- NOTE | 2022-01-11 11:22 | NUR ---
Nutrition consult re "Hypoalbuminemia:" Unfortunately, albumin is not a validated indicator of acute nutritional status and this pt's low albumin is more likely r/t her sepsis and other stress in this case. Any changes in nutrition are not likely going to impact her albumin. Pt was admitted w/ severe sepsis w/ septic shock, UTI and JULIA per EMR. Currently on Regular diet pending PO intake. Will monitor for PO trends prior to any nutrition intervention. Will continue to follow. Recs; 1. Continue Regular diet as tolerated 2. Monitor need for additional protein 3. Bowel care per rx 4. Weekly wts Addendum: 01/11/22 at [address] Amended: Links added.
--- NOTE | 2022-01-11 14:01 | NUR ---
PRESSURE ULCER EDUCATION: DEFINITION: A pressure ulcer is an area of skin that breaks down when you stay in one position too long. The constant pressure against the skin reduces the blood flow to that area and the affected tissue dies. CAUSES: "Being bedridden or in a wheelchair "Fragile skin "Having a chronic condition, such as diabetes or vascular disease "Inability to move certain parts of your body without assistance "Older age "Incontinence of urine or stool SYMPTOMS: "A reddened area that DOES NOT turn white when pressed on - this can be the beginning of a pressure ulcer "A blister, deep sore or a crater - these can be advanced pressure ulcers FIRST AID: "Relieve the pressure on this area "Keep the area clean and dry "Call your primary doctor if you see any of the above symptoms "DO NOT massage the area "DO NOT use a donut shaped or ring shaped pillow- these actually interfere with the blood flow and cause complications PREVENTION: "Check for pressure ulcers everyday "Change position at least every two hours to relieve pressure "Use items that help relieve pressure- pillows, sheepskin, foam padding, and powders. "Keep skin clean and dry "Eat healthy well balanced meals "Exercise daily IF YOU SEE ANY OF THESE SYMPTOMS WHILE IN THE HOSPITAL - TELL YOUR NURSE IMMEDIATELY. IF YOU SEE ANY OF THESE SYMPTOMS WHILE AT HOME OR HAVE ANY QUESTIONS OR CONCERNS ABOUT PRESSURE ULCERS - CALL YOUR PRIMARY DOCTOR IMMEDIATELY. Addendum: 01/11/22 at 1401 by Sole Sosa RN Amended: Links added.
[2022-01-11] MEDS: VANCOMYCIN 750MG IV in NS 250 ML IV SCH (16:59)
[2022-01-11 19:26] VITALS: BP 126/52
[2022-01-11] MEDS: Neutra Phos packet PO SCH (21:00)
[2022-01-11] MEDS: sennosides/docusate sodium tablet PO SCH (21:00)
[2022-01-11 21:13] VITALS: BP 122/63
--- NOTE | 2022-01-11 23:06 | NUR ---
Charting by Tiana CARVALHO reviewed by Talya Bravo RN
[2022-01-12 01:31] VITALS: BP 121/59
[2022-01-12] MEDS: clindamycin 300mg/D5W 50mL 50 ML IV SCH ×3 (02:31→14:18)
[2022-01-12] MEDS: normal saline 1000ml 1,000 ML IV SCH (05:23)
[2022-01-12 06:30] VITALS: BP 126/64
--- NOTE | 2022-01-12 06:38 | NUR ---
Patient in room PCU 5937L. I have received report from Ann Marie RN and had the opportunity to ask questions and assume patient care. Pt is laying semi fowlers in bed and is resting comfortably. Pt on RA. No s/s of distress, no s/s of pain. BLL, call light wihtin reach, frequently used items in reach, frequent rounding, will continue to monitor.
[2022-01-12 06:44] LABS: HEMOGLOBIN 7.3 g/dl (12.0-16.0); MEAN CORPUSCULAR HEMOGLOBIN 27.1 PG (27.0-31.0); MEAN CORPUSCULAR HGB CONC 33.4 g/dL (33.0-36.5); MEAN CORPUSCULAR VOLUME 81.2 FL (78-98); RED BLOOD COUNT 2.69 X10'6 (4.20-5.60)
[2022-01-12 06:47] LABS: MEAN PLATELET VOLUME 9.6 FL (7.4-10.4); PLATELET COUNT 91 X10'3 (140-440); RED CELL DISTRIBUTION WIDTH 18.1 % (11.5-14.5); WHITE BLOOD COUNT 17.3 X10'3 (4.5-11.0)
[2022-01-12 06:55] LABS: ALANINE AMINOTRANSFERASE 14 U/L (12-78); ALBUMIN 1.3 G/DL (3.4-5.0); ALBUMIN/GLOBULIN RATIO 0.3 (1.1-1.5); ALKALINE PHOSPHATASE 172 IU/L (46-116); ANION GAP 13 (8-16); ASPARTATE AMINO TRANSFERASE 23 U/L (10-37); BILIRUBIN,TOTAL 1.4 MG/DL (0.1-1.0); BLOOD UREA NITROGEN 99 MG/DL (7-18); BUN/CREATININE RATIO 54.4 (6.6-38.0); CALCIUM 7.6 MG/DL (8.5-10.1); CHLORIDE 107 MMOL/L (99-107); CREATININE 1.82 MG/DL (0.40-0.90); GLUCOSE 93 MG/DL (70-104); MAGNESIUM 1.9 MG/DL (1.5-2.4); PHOSPHORUS 5.1 MG/DL (2.3-4.5); POTASSIUM 3.4 MMOL/L (3.5-5.1); SODIUM 135 MMOL/L (135-145); TOTAL CARBON DIOXIDE 15.2 MMOL/L (24-32); TOTAL PROTEIN 5.1 G/DL (6.4-8.2); eGFR 30 ML/MIN
[2022-01-12] MEDS: cefepime 1GM/NS ADD-VANTAGE 100 ML IV SCH (07:51)
[2022-01-12] MEDS: Neutra Phos packet PO SCH ×3 (07:54→13:00)
[2022-01-12] MEDS ORDERED: famotidine/PF 10 mg/ml inj IV SCH ×2 (08:00→18:11)
[2022-01-12] MEDS ORDERED: fluconazole 100mg tablet PO SCH (08:00)
[2022-01-12 08:05] LABS: HEMATOCRIT 21.8 % (35.0-45.0)
[2022-01-12 08:11] LABS: ANISOCYTOSIS 2+; PLATELET ESTIMATE DECREASED; TOTAL CELLS COUNTED 100
[2022-01-12 08:12] LABS: HYPOCHROMASIA 1+; SCHISTOCYTES FEW
--- NOTE | 2022-01-12 08:12 | NUR ---
PAGER ID: [phone] MESSAGE: Rose Jaramillo [id number]: Critical HCT of 21.8 and HBG of 7.3. -Charmaine EXT [id number]
[2022-01-12] MEDS: K and/or MAG REPLACEMENT MC SCH (08:13)
--- NOTE | 2022-01-12 09:02 | NUR ---
Nutrition consult: Noted pt with a low Arthur of 12. Per WOC note pt with some MASD to bilat buttocks and excoriated skin under left breast with multiple open areas. Pt currently on a regular diet and eating well, documented with 75% PO intake of first meal. Will continue to follow and monitor need for nutrition intervention pending trends in PO intake. Addendum: 01/12/22 at [address] Amended: Links added.
[2022-01-12] MEDS: sodium bicarbonate (8.4%) inj. 100 MEQ in dextrose 5%-water 1,000 ML IV SCH ×3 (09:28→21:03)
[2022-01-12] MEDS: POTASSIUM BICARB 20meq eff tab 20 MEQ TABLET.EFF PO PRN ×3 (09:42→19:49)
[2022-01-12 11:00] VITALS: BP 112/59
--- NOTE | 2022-01-12 13:05 | NUR ---
PAGER ID: [phone] MESSAGE: Clint Rose 3015A- PHOS 5.1, Do you want this Pt to receive Neutro-Phos Packet? Its ordered TID. -Charmaine EXT [id number]
--- NOTE | 2022-01-12 13:19 | NUR ---
PAGER ID: [phone] MESSAGE: Rose Jaramillo [id number], May her pain med be switched from Acetaminophen to Ibuprofen. Pt has allergies to acetaminophen. -Charmaine EXT [id number]
[2022-01-12] MEDS: ibuprofen tablet 400 MG TABLET PO PRN (14:16)
[2022-01-12] MEDS ORDERED: VANCOMYCIN LEVEL IV ONE (15:30)
[2022-01-12] MEDS: CefTRIAXone 2gm/D5W 50ml BAG 50 ML IV SCH (15:35)
[2022-01-12 18:00] VITALS: BP 100/53
--- NOTE | 2022-01-12 18:46 | NUR ---
Problems reprioritized. Patient report given, questions answered & plan of care reviewed with Kristyn FUNK.
--- NOTE | 2022-01-12 18:53 | NUR ---
Patient in room PCU 3015. I have received report from Charmaine and had the opportunity to ask questions and assume patient care.
[2022-01-12] MEDS: sennosides/docusate sodium tablet PO SCH (19:50)
[2022-01-12 22:00] VITALS: BP 95/48
--- NOTE | 2022-01-12 22:54 | NUR ---
Was told in report to remove R IJ quad lumen- however there is no order to d/c. I will pass along to day shift to obtain an order to d/c.
[2022-01-13] VITALS (11 sets, daily range): BP systolic 93–113; BP diastolic 45–54
[2022-01-13 03:15] LABS: BASOPHILS # (AUTO) 0.1 X10'3 (0-0.2); BASOPHILS % (AUTO) 0.7 % (0-1); EOSINOPHILS # (AUTO) 0.2 X10'3 (0-0.9); EOSINOPHILS % (AUTO) 1.7 % (0-6); HEMOGLOBIN 7.1 g/dl (12.0-16.0); LYMPHOCYTES # (AUTO) 1.3 X10'3 (1.1-4.8); MEAN CORPUSCULAR HEMOGLOBIN 27.5 PG (27.0-31.0); MEAN CORPUSCULAR HGB CONC 33.9 g/dL (33.0-36.5); MONOCYTES # (AUTO) 1.2 X10'3 (0-0.9); MONOCYTES % (AUTO) 8.6 % (2-12); NEUTROPHILS # (AUTO) 11.4 X10'3 (1.8-7.7); PLATELET COUNT 114 X10'3 (140-440); RED BLOOD COUNT 2.58 X10'6 (4.20-5.60); WHITE BLOOD COUNT 14.2 X10'3 (4.5-11.0)
[2022-01-13 03:21] LABS: HEMATOCRIT 20.9 % (35.0-45.0)
--- NOTE | 2022-01-13 03:25 | NUR ---
Page Sent PAGER ID: [phone] MESSAGE: Patient [id number] Rose Jaramillo. Critical HBG 7.1 and HCT 20.9. Nurse: Zandra Bello50
[2022-01-13 03:29] LABS: ALANINE AMINOTRANSFERASE 14 U/L (12-78); ALBUMIN 1.3 G/DL (3.4-5.0); ALBUMIN/GLOBULIN RATIO 0.4 (1.1-1.5); ALKALINE PHOSPHATASE 143 IU/L (46-116); ANION GAP 9 (8-16); ASPARTATE AMINO TRANSFERASE 23 U/L (10-37); BILIRUBIN,TOTAL 1.3 MG/DL (0.1-1.0); BLOOD UREA NITROGEN 64 MG/DL (7-18); BUN/CREATININE RATIO 53.8 (6.6-38.0); CALCIUM 7.4 MG/DL (8.5-10.1); CHLORIDE 108 MMOL/L (99-107); CREATININE 1.19 MG/DL (0.40-0.90); GLUCOSE 114 MG/DL (70-104); MAGNESIUM 1.5 MG/DL (1.5-2.4); PHOSPHORUS 2.9 MG/DL (2.3-4.5); POTASSIUM 3.8 MMOL/L (3.5-5.1); SODIUM 137 MMOL/L (135-145); TOTAL CARBON DIOXIDE 20.5 MMOL/L (24-32); eGFR 48 ML/MIN
--- NOTE | 2022-01-13 03:59 | NUR ---
Hui aware of lab values-no new orders at this time
--- NOTE | 2022-01-13 05:59 | NUR ---
REVIEWED SILK TRIMMER ASSESSMENT AND IN AGREEMENT.
--- NOTE | 2022-01-13 06:06 | NUR ---
Problems reprioritized. Patient report given, questions answered & plan of care reviewed with hCarmaine.
--- NOTE | 2022-01-13 06:26 | NUR ---
Patient in room PCU 1316R. I have received report from Zandra FUNK and had the opportunity to ask questions and assume patient care. Pt is sitting high fowlers in bed. Pt on RA. No s/s of distress. Pt c/o nausea. Please see eMAR and interventions. BLL, call light within reach, frequently used items in reach, frequent rounding. Will continue to monitor.
[2022-01-13] MEDS: fluconazole 100mg tablet PO SCH (08:00)
[2022-01-13] MEDS: ibuprofen tablet 400 MG TABLET PO PRN ×3 (09:01→21:52)
[2022-01-13] MEDS: sodium bicarbonate (8.4%) inj. 100 MEQ in dextrose 5%-water 1,000 ML IV SCH (09:01)
[2022-01-13] MEDS: CefTRIAXone 2gm/D5W 50ml BAG 50 ML IV SCH (09:03)
[2022-01-13] MEDS ORDERED: tranexamic acid 1gm/0.7% sal. 100 ML IV ONE (11:00)
[2022-01-13] MEDS ORDERED: tranexamic acid inj. 1,000 MG in normal saline 100ml IV soln 90 ML IV ONE (11:45)
--- NOTE | 2022-01-13 13:03 | NUR ---
PAGER ID: [phone] MESSAGE: Rose Jaramillo [id number]: Blood is ready. Still need informed consent signed. -Charmaine Amaya EXT [id number]
--- NOTE | 2022-01-13 14:15 | NUR ---
PAGER ID: [phone] MESSAGE: Rose Jaramillo [id number]: Needs informed consent signed, please & thank you -Charmaine EXT [id number]
--- NOTE | 2022-01-13 18:18 | NUR ---
Problems reprioritized. Patient report given, questions answered & plan of care reviewed with Fernando GRANADO.
[2022-01-13] MEDS: sennosides/docusate sodium tablet PO SCH (21:52)
[2022-01-13] MEDS: famotidine 20mg tablet PO SCH (21:52)
[2022-01-14 02:00] VITALS: BP 97/48
[2022-01-14] MEDS: sodium bicarbonate (8.4%) inj. 100 MEQ in dextrose 5%-water 1,000 ML IV SCH (04:12)
--- NOTE | 2022-01-14 04:20 | NUR ---
Pt coccyx area dressing is dry, neat, and intact, refused to be changed at this Nos shift, charge nurse notified.
[2022-01-14 06:15] VITALS: BP 94/56
--- NOTE | 2022-01-14 06:15 | NUR ---
Patient in room PCU 3015. I have received report from Fernando GRANADO and had the opportunity to ask questions and assume patient care.Bedside report completed. Will follow care of Pt with Aram FUNK Addendum: 01/14/22 at 0736 by Priti Dupree RN Amended: Links added.
--- NOTE | 2022-01-14 06:44 | NUR ---
Patient in room U 4680K. I have received report from Fernando GRANADO and had the opportunity to ask questions and assume patient care. Bedside report given. Patient awake. No distress. CAll light within reach. Addendum: 01/14/22 at 0645 by Aram Roper LVN Amended: Links added.
[2022-01-14 07:18] LABS: BASOPHILS % (AUTO) 0.1 % (0-1); EOSINOPHILS # (AUTO) 0.4 X10'3 (0-0.9); EOSINOPHILS % (AUTO) 3.2 % (0-6); HEMATOCRIT 22.3 % (35.0-45.0); HEMOGLOBIN 7.4 g/dl (12.0-16.0); LYMPHOCYTES # (AUTO) 1.3 X10'3 (1.1-4.8); LYMPHOCYTES % (AUTO) 11.4 % (21-51); MEAN CORPUSCULAR HEMOGLOBIN 27.6 PG (27.0-31.0); MEAN CORPUSCULAR HGB CONC 33.4 g/dL (33.0-36.5); MEAN CORPUSCULAR VOLUME 82.5 FL (78-98); MEAN PLATELET VOLUME 8.9 FL (7.4-10.4); MONOCYTES % (AUTO) 8.8 % (2-12); NEUTROPHILS % (AUTO) 76.5 % (42-75); PLATELET COUNT 186 X10'3 (140-440); RED CELL DISTRIBUTION WIDTH 16.4 % (11.5-14.5); WHITE BLOOD COUNT 11.8 X10'3 (4.5-11.0)
[2022-01-14] MEDS: ibuprofen tablet 400 MG TABLET PO PRN ×3 (07:39→21:12)
[2022-01-14] MEDS: fluconazole 100mg tablet PO SCH (07:39)
[2022-01-14 09:22] LABS: ALANINE AMINOTRANSFERASE 15 U/L (12-78); ALBUMIN 1.4 G/DL (3.4-5.0); ALBUMIN/GLOBULIN RATIO 0.4 (1.1-1.5); ALKALINE PHOSPHATASE 121 IU/L (46-116); ANION GAP 6 (8-16); ASPARTATE AMINO TRANSFERASE 21 U/L (10-37); BILIRUBIN,TOTAL 0.8 MG/DL (0.1-1.0); BLOOD UREA NITROGEN 34 MG/DL (7-18); BUN/CREATININE RATIO 47.2 (6.6-38.0); CALCIUM 7.4 MG/DL (8.5-10.1); CHLORIDE 108 MMOL/L (99-107); CREATININE 0.72 MG/DL (0.40-0.90); GLUCOSE 111 MG/DL (70-104); MAGNESIUM 1.2 MG/DL (1.5-2.4); PHOSPHORUS 2.2 MG/DL (2.3-4.5); POTASSIUM 3.8 MMOL/L (3.5-5.1); SODIUM 138 MMOL/L (135-145); TOTAL CARBON DIOXIDE 24.2 MMOL/L (24-32); TOTAL PROTEIN 5.1 G/DL (6.4-8.2); eGFR 86 ML/MIN
--- NOTE | 2022-01-14 10:47 | NUR ---
Reassessment: Per physician notes severe sepsis is resolving. Pt continues on regular diet and overall eating well with documented average 70% PO intake which meets roughly 97% estimated energy needs and 67% estimated protein needs. See nutrition interventions below that were d/w dietary for additional protein. LBM 01/13, receiving routine bowel care. Will continue to follow and monitor need for further nutrition intervention. Recommendations: 1. Continue regular diet as tolerated 2. Alternate cottage cheese and yogurt WB, smoothies WL, shakes WS 3. Routine bowel care 4. Weekly scaled wts Addendum: 01/14/22 at [address] Amended: Links added.
[2022-01-14] MEDS: CefTRIAXone 2gm/D5W 50ml BAG 50 ML IV SCH (10:48)
[2022-01-14 11:53] VITALS: BP 98/66
[2022-01-14 15:51] VITALS: BP 97/56
--- NOTE | 2022-01-14 17:59 | NUR ---
I have reviewed and agree with all interventions, assessments performed and documented by Aram FUNK. Addendum: 01/14/22 at 1800 by Priti Dupree RN Amended: Links added.
[2022-01-14 18:00] VITALS: BP 112/68
--- NOTE | 2022-01-14 18:21 | NUR ---
Problems reprioritized. Patient report given, questions answered & plan of care reviewed with Fernando GRANADO. Call light within reach. No distress noted. Bed in lowest position. Bedside report given. Addendum: 01/14/22 at 1822 by Aram Roper LVN Amended: Links added.
[2022-01-14] MEDS: sennosides/docusate sodium tablet PO SCH (21:12)
[2022-01-14] MEDS: Neutra Phos packet PO SCH (21:13)
[2022-01-14] MEDS: famotidine 20mg tablet PO SCH (21:13)
[2022-01-14 22:00] VITALS: BP 99/60
[2022-01-15 02:00] VITALS: BP 105/55
--- NOTE | 2022-01-15 06:43 | NUR ---
Bedside report is given to AM LOY Rosas.
[2022-01-15 07:00] VITALS: BP 122/64
[2022-01-15 07:02] LABS: BASOPHILS # (AUTO) 0.1 X10'3 (0-0.2); MEAN CORPUSCULAR VOLUME 84.3 FL (78-98)
[2022-01-15 07:07] LABS: BASOPHILS % (AUTO) 0.9 % (0-1); EOSINOPHILS # (AUTO) 0.4 X10'3 (0-0.9); EOSINOPHILS % (AUTO) 4.5 % (0-6); HEMOGLOBIN 7.4 g/dl (12.0-16.0); LYMPHOCYTES # (AUTO) 1.2 X10'3 (1.1-4.8); LYMPHOCYTES % (AUTO) 14.5 % (21-51); MEAN CORPUSCULAR HEMOGLOBIN 28.5 PG (27.0-31.0); MEAN CORPUSCULAR HGB CONC 33.7 g/dL (33.0-36.5); MEAN PLATELET VOLUME 9.5 FL (7.4-10.4); MONOCYTES # (AUTO) 0.8 X10'3 (0-0.9); MONOCYTES % (AUTO) 10.2 % (2-12); NEUTROPHILS # (AUTO) 5.8 X10'3 (1.8-7.7); NEUTROPHILS % (AUTO) 69.9 % (42-75); PLATELET COUNT 184 X10'3 (140-440); RED BLOOD COUNT 2.58 X10'6 (4.20-5.60); RED CELL DISTRIBUTION WIDTH 16.5 % (11.5-14.5); WHITE BLOOD COUNT 8.3 X10'3 (4.5-11.0)
[2022-01-15 07:11] LABS: HEMATOCRIT 21.8 % (35.0-45.0)
[2022-01-15 07:36] LABS: ALANINE AMINOTRANSFERASE 11 U/L (12-78); ALBUMIN 1.5 G/DL (3.4-5.0); ALBUMIN/GLOBULIN RATIO 0.4 (1.1-1.5); ALKALINE PHOSPHATASE 120 IU/L (46-116); ANION GAP 9 (8-16); ASPARTATE AMINO TRANSFERASE 19 U/L (10-37); BILIRUBIN,TOTAL 0.7 MG/DL (0.1-1.0); BLOOD UREA NITROGEN 23 MG/DL (7-18); BUN/CREATININE RATIO 37.7 (6.6-38.0); CALCIUM 7.6 MG/DL (8.5-10.1); CHLORIDE 106 MMOL/L (99-107); CREATININE 0.61 MG/DL (0.40-0.90); GLUCOSE 106 MG/DL (70-104); MAGNESIUM 1.4 MG/DL (1.5-2.4); PHOSPHORUS 2.1 MG/DL (2.3-4.5); SODIUM 138 MMOL/L (135-145); TOTAL CARBON DIOXIDE 22.9 MMOL/L (24-32); TOTAL PROTEIN 5.4 G/DL (6.4-8.2); eGFR > 90 ML/MIN
[2022-01-15] MEDS: Neutra Phos packet PO SCH ×2 (08:37→21:23)
[2022-01-15] MEDS: fluconazole 100mg tablet PO SCH (08:37)
[2022-01-15] MEDS: CefTRIAXone 2gm/D5W 50ml BAG 50 ML IV SCH (08:39)
[2022-01-15 11:00] VITALS: BP 98/42
[2022-01-15] MEDS ORDERED: tranexamic acid inj. 1,000 MG in normal saline 100ml IV soln 90 ML IV ONE (11:40)
[2022-01-15 15:00] VITALS: BP 147/66
[2022-01-15 18:00] VITALS: BP 111/65
--- NOTE | 2022-01-15 18:33 | NUR ---
Problems reprioritized. Patient report given, questions answered & plan of care reviewed with Fernando GRANADO.
[2022-01-15] MEDS: famotidine 20mg tablet PO SCH (21:23)
[2022-01-15] MEDS: sennosides/docusate sodium tablet PO SCH (21:23)
[2022-01-15 22:00] VITALS: BP 90/62
[2022-01-16 02:00] VITALS: BP 117/63
--- NOTE | 2022-01-16 04:51 | NUR ---
Did Flush F/C with sterile water 60 ml, came out cloudy urine with some clotted blood, will report to AM nurse for this issue at this shift, Pt is on Rocephine ATB IV for UTI, afebrile, no complain of burning in urethra area, admission for septic UTI, continue closely monitor any change of condition.
--- NOTE | 2022-01-16 05:16 | NUR ---
Pt refused MOMfor bowel care, stated: I want after breakfast to take MOM, will notify AM nurse.
--- NOTE | 2022-01-16 06:34 | NUR ---
Patient in room PCU 3015. I have received report from Fernando GRANADO and had the opportunity to ask questions and assume patient care. Patient resting in bed in no acute distress.
[2022-01-16 07:00] VITALS: BP 104/59
[2022-01-16 07:04] LABS: BASOPHILS # (AUTO) 0.1 X10'3 (0-0.2); BASOPHILS % (AUTO) 1.1 % (0-1); EOSINOPHILS # (AUTO) 0.2 X10'3 (0-0.9); EOSINOPHILS % (AUTO) 3.4 % (0-6); HEMOGLOBIN 7.1 g/dl (12.0-16.0); LYMPHOCYTES # (AUTO) 1.3 X10'3 (1.1-4.8); LYMPHOCYTES % (AUTO) 18.5 % (21-51); MEAN CORPUSCULAR HEMOGLOBIN 28.1 PG (27.0-31.0); MEAN CORPUSCULAR HGB CONC 33.5 g/dL (33.0-36.5); MEAN CORPUSCULAR VOLUME 83.9 FL (78-98); MEAN PLATELET VOLUME 8.8 FL (7.4-10.4); MONOCYTES # (AUTO) 0.9 X10'3 (0-0.9); MONOCYTES % (AUTO) 12.9 % (2-12); NEUTROPHILS # (AUTO) 4.5 X10'3 (1.8-7.7); NEUTROPHILS % (AUTO) 64.1 % (42-75); PLATELET COUNT 304 X10'3 (140-440); RED BLOOD COUNT 2.55 X10'6 (4.20-5.60); RED CELL DISTRIBUTION WIDTH 15.9 % (11.5-14.5)
[2022-01-16 07:05] LABS: ALANINE AMINOTRANSFERASE 14 U/L (12-78); ALBUMIN 1.5 G/DL (3.4-5.0); ALBUMIN/GLOBULIN RATIO 0.4 (1.1-1.5); ALKALINE PHOSPHATASE 121 IU/L (46-116); ANION GAP 7 (8-16); ASPARTATE AMINO TRANSFERASE 19 U/L (10-37); BILIRUBIN,TOTAL 0.6 MG/DL (0.1-1.0); BLOOD UREA NITROGEN 15 MG/DL (7-18); BUN/CREATININE RATIO 24.6 (6.6-38.0); CALCIUM 7.6 MG/DL (8.5-10.1); CHLORIDE 103 MMOL/L (99-107); CREATININE 0.61 MG/DL (0.40-0.90); GLUCOSE 94 MG/DL (70-104); MAGNESIUM 1.2 MG/DL (1.5-2.4); POTASSIUM 4.1 MMOL/L (3.5-5.1); SODIUM 135 MMOL/L (135-145); TOTAL CARBON DIOXIDE 25.1 MMOL/L (24-32); TOTAL PROTEIN 5.5 G/DL (6.4-8.2); eGFR > 90 ML/MIN
[2022-01-16 07:22] LABS: HEMATOCRIT 21.4 % (35.0-45.0)
[2022-01-16] MEDS: fluconazole 100mg tablet PO SCH (07:40)
[2022-01-16] MEDS: CefTRIAXone 2gm/D5W 50ml BAG 50 ML IV SCH (07:40)
[2022-01-16] MEDS ORDERED: magnesium 4gm in 100ml NS 100 ML IV PRN (07:40)
[2022-01-16] MEDS: Neutra Phos packet PO SCH ×2 (07:41→20:00)
[2022-01-16] MEDS: magnesium hydroxide 30ml (MOM) UD suspension PO PRN (08:39)
[2022-01-16] MEDS: magnesium Cl slow-release 64mg tablet PO PRN ×2 (08:39→20:08)
[2022-01-16 11:00] VITALS: BP 108/64
[2022-01-16 15:00] VITALS: BP 107/64
[2022-01-16 18:00] VITALS: BP 116/67
--- NOTE | 2022-01-16 18:11 | NUR ---
Problems reprioritized. Patient report given, questions answered & plan of care reviewed with Fernando GRANADO. Sims removed and wick in place. Patient resting in bed in no acute distress. Linen and gown changed family is at the bedside.
[2022-01-16] MEDS: ibuprofen tablet 400 MG TABLET PO PRN (20:07)
[2022-01-16] MEDS: docusate sod 100mg capsule PO SCH (20:08)
[2022-01-16] MEDS: thiamine 100mg tablet PO SCH (20:08)
[2022-01-16] MEDS: famotidine 20mg tablet PO SCH (20:08)
[2022-01-16] MEDS: ascorbic acid 500mg tablet PO SCH (20:08)
[2022-01-16] MEDS: ferrous sulfate 325mg tablet PO SCH (20:08)
[2022-01-16] MEDS: sennosides/docusate sodium tablet PO SCH (20:10)
[2022-01-16 22:00] VITALS: BP 118/59
--- NOTE | 2022-01-16 23:23 | NUR ---
Pt refused Nutro Pgorus at this HS Addendum: 01/16/22 at 2326 by Fernando Calhoun RN Pt refused Neutro Phos at this HS and her Phos is WNL at this morning Lab results.
[2022-01-17 02:00] VITALS: BP 103/60
[2022-01-17 07:00] VITALS: BP 94/55
[2022-01-17] MEDS: fluconazole 100mg tablet PO SCH (07:58)
[2022-01-17] MEDS: ferrous sulfate 325mg tablet PO SCH ×3 (07:58→17:30)
[2022-01-17] MEDS: docusate sod 100mg capsule PO SCH ×2 (07:58→19:38)
[2022-01-17] MEDS: ascorbic acid 500mg tablet PO SCH ×3 (07:59→17:30)
[2022-01-17] MEDS: multivitamins, therapeutics tablet PO SCH (07:59)
[2022-01-17] MEDS: thiamine 100mg tablet PO SCH ×2 (07:59→19:38)
[2022-01-17] MEDS: folic acid/vitamin B complex w/vitamin C 0.8mg tablet PO SCH (07:59)
[2022-01-17] MEDS: Neutra Phos packet PO SCH ×2 (08:00→19:42)
[2022-01-17 08:18] LABS: EOSINOPHILS % (AUTO) 2.6 % (0-6); HEMATOCRIT 23.1 % (35.0-45.0); HEMOGLOBIN 7.7 g/dl (12.0-16.0); LYMPHOCYTES % (AUTO) 18.5 % (21-51); MEAN CORPUSCULAR HEMOGLOBIN 28.4 PG (27.0-31.0); MEAN CORPUSCULAR HGB CONC 33.4 g/dL (33.0-36.5); MEAN PLATELET VOLUME 7.9 FL (7.4-10.4); MONOCYTES % (AUTO) 13.4 % (2-12); NEUTROPHILS % (AUTO) 64.5 % (42-75); PLATELET COUNT 316 X10'3 (140-440); RED BLOOD COUNT 2.72 X10'6 (4.20-5.60); RED CELL DISTRIBUTION WIDTH 16.3 % (11.5-14.5); WHITE BLOOD COUNT 6.5 X10'3 (4.5-11.0)
[2022-01-17 08:19] LABS: BASOPHILS # (AUTO) 0.1 X10'3 (0-0.2); EOSINOPHILS # (AUTO) 0.2 X10'3 (0-0.9); LYMPHOCYTES # (AUTO) 1.2 X10'3 (1.1-4.8); MONOCYTES # (AUTO) 0.9 X10'3 (0-0.9); NEUTROPHILS # (AUTO) 4.2 X10'3 (1.8-7.7)
[2022-01-17] MEDS: CefTRIAXone 2gm/D5W 50ml BAG 50 ML IV SCH (08:41)
[2022-01-17] MEDS: magnesium hydroxide 30ml (MOM) UD suspension PO PRN (08:45)
[2022-01-17 09:04] LABS: ALBUMIN 1.5 G/DL (3.4-5.0); ALBUMIN/GLOBULIN RATIO 0.4 (1.1-1.5); ANION GAP 5 (8-16); BILIRUBIN,TOTAL 0.6 MG/DL (0.1-1.0); BLOOD UREA NITROGEN 11 MG/DL (7-18); BUN/CREATININE RATIO 20.4 (6.6-38.0); CHLORIDE 104 MMOL/L (99-107); CREATININE 0.54 MG/DL (0.40-0.90); GLUCOSE 87 MG/DL (70-104); MAGNESIUM 1.5 MG/DL (1.5-2.4); POTASSIUM 4.5 MMOL/L (3.5-5.1); SODIUM 136 MMOL/L (135-145); TOTAL CARBON DIOXIDE 26.8 MMOL/L (24-32); TOTAL PROTEIN 5.5 G/DL (6.4-8.2); eGFR > 90 ML/MIN
[2022-01-17 09:05] LABS: ALANINE AMINOTRANSFERASE 16 U/L (12-78); ALKALINE PHOSPHATASE 117 IU/L (46-116); ASPARTATE AMINO TRANSFERASE 22 U/L (10-37)
--- NOTE | 2022-01-17 10:31 | NUR ---
Reassessment: Pt continues eating well, documented with average 79% PO intake since 01/14 which meets 100% estimated energy needs and 75% estimated protein needs, not including the additional food items pt is receiving on meal trays. LBM 01/13. Pt has been receiving routine Senna-S and routine Colace BID added to med list 01/16. Pt also received PRN MoM 01/16 and 01/17. No further nutrition intervention implemented at this time. Will continue to follow and make recommendations as appropriate. Recommendations: 1. Continue regular diet 2. Alternate cottage cheese and yogurt WB, smoothies WL, shakes WS 3. Routine bowel care; continue to utilize PRN bowel care 4. Weekly scaled wts Addendum: 01/17/22 at [address] Amended: Links added.
[2022-01-17 11:00] VITALS: BP 113/63
[2022-01-17 15:00] VITALS: BP 110/67
--- NOTE | 2022-01-17 17:50 | NUR ---
orientee documentation: I have reviewed and agree with all interventions, assessments performed and documented by Leonarda FUNK . Orientee Medication Administration: For this medication-pass time frame, all medication were reviewed, dispensed, administered and documented per hospital policy by Leonarda FUNK .
[2022-01-17 18:00] VITALS: BP 100/64
--- NOTE | 2022-01-17 18:14 | NUR ---
Problems reprioritized. Patient report given, questions answered & plan of care reviewed with Fernando GRANADO. Patient is resting in bed in no acute distress.
[2022-01-17] MEDS: famotidine 20mg tablet PO SCH (19:38)
[2022-01-17] MEDS: sennosides/docusate sodium tablet PO SCH (19:38)
[2022-01-17 22:00] VITALS: BP 107/61
[2022-01-18] MEDS ORDERED: polyethylene glycol 3350 17gm powd pack PO PRN (01:45)
[2022-01-18 02:00] VITALS: BP 91/50
--- NOTE | 2022-01-18 05:09 | NUR ---
Changed Coccyx area dressing related to it was soiled. Did IV LEJ 22G saline flushed
[2022-01-18 07:01] LABS: BASOPHILS # (AUTO) 0.1 X10'3 (0-0.2); BASOPHILS % (AUTO) 1.1 % (0-1); EOSINOPHILS # (AUTO) 0.2 X10'3 (0-0.9); EOSINOPHILS % (AUTO) 3.1 % (0-6); HEMATOCRIT 23.7 % (35.0-45.0); LYMPHOCYTES # (AUTO) 1.1 X10'3 (1.1-4.8); LYMPHOCYTES % (AUTO) 19.3 % (21-51); MEAN CORPUSCULAR HEMOGLOBIN 28.7 PG (27.0-31.0); MEAN CORPUSCULAR HGB CONC 33.9 g/dL (33.0-36.5); MEAN CORPUSCULAR VOLUME 84.9 FL (78-98); MEAN PLATELET VOLUME 8.2 FL (7.4-10.4); MONOCYTES # (AUTO) 0.9 X10'3 (0-0.9); MONOCYTES % (AUTO) 15.3 % (2-12); NEUTROPHILS # (AUTO) 3.6 X10'3 (1.8-7.7); NEUTROPHILS % (AUTO) 61.2 % (42-75); PLATELET COUNT 324 X10'3 (140-440); RED BLOOD COUNT 2.79 X10'6 (4.20-5.60); RED CELL DISTRIBUTION WIDTH 16.3 % (11.5-14.5); WHITE BLOOD COUNT 5.9 X10'3 (4.5-11.0)
[2022-01-18] MEDS: Neutra Phos packet PO SCH ×2 (08:00→20:00)
[2022-01-18] MEDS: ferrous sulfate 325mg tablet PO SCH ×3 (08:05→17:17)
[2022-01-18] MEDS: docusate sod 100mg capsule PO SCH ×2 (08:05→20:00)
[2022-01-18] MEDS: thiamine 100mg tablet PO SCH ×2 (08:05→21:57)
[2022-01-18] MEDS: CefTRIAXone 2gm/D5W 50ml BAG 50 ML IV SCH (08:05)
[2022-01-18] MEDS: folic acid/vitamin B complex w/vitamin C 0.8mg tablet PO SCH (08:05)
[2022-01-18] MEDS: ascorbic acid 500mg tablet PO SCH ×3 (08:05→17:17)
[2022-01-18] MEDS: fluconazole 100mg tablet PO SCH (08:05)
[2022-01-18] MEDS: multivitamins, therapeutics tablet PO SCH (08:05)
[2022-01-18 08:15] LABS: ALANINE AMINOTRANSFERASE 15 U/L (12-78); ALBUMIN 1.6 G/DL (3.4-5.0); ALBUMIN/GLOBULIN RATIO 0.4 (1.1-1.5); ALKALINE PHOSPHATASE 131 IU/L (46-116); ANION GAP 5 (8-16); ASPARTATE AMINO TRANSFERASE 21 U/L (10-37); BILIRUBIN,TOTAL 0.6 MG/DL (0.1-1.0); BLOOD UREA NITROGEN 11 MG/DL (7-18); BUN/CREATININE RATIO 18.6 (6.6-38.0); CALCIUM 8.1 MG/DL (8.5-10.1); CHLORIDE 102 MMOL/L (99-107); CREATININE 0.59 MG/DL (0.40-0.90); GLUCOSE 89 MG/DL (70-104); MAGNESIUM 1.6 MG/DL (1.5-2.4); PHOSPHORUS 4.5 MG/DL (2.3-4.5); POTASSIUM 4.3 MMOL/L (3.5-5.1); SODIUM 135 MMOL/L (135-145); TOTAL CARBON DIOXIDE 27.9 MMOL/L (24-32); TOTAL PROTEIN 6.1 G/DL (6.4-8.2); eGFR > 90 ML/MIN
[2022-01-18 13:00] VITALS: BP 85/61
[2022-01-18 13:10] VITALS: BP 91/57
[2022-01-18] MEDS: ibuprofen tablet 400 MG TABLET PO PRN ×2 (14:42→21:57)
[2022-01-18 16:00] VITALS: BP 108/57
[2022-01-18 18:00] VITALS: BP 77/56
[2022-01-18] MEDS: sennosides/docusate sodium tablet PO SCH (21:00)
[2022-01-18] MEDS: famotidine 20mg tablet PO SCH (21:57)
[2022-01-18 22:00] VITALS: BP 92/52
--- NOTE | 2022-01-18 22:00 | NUR ---
Pt refused phos related to the reading of phos lab is normal 4.5, hold DSS 100 mg and senna 2 tabs related to pt had loose stool x 3 today.
[2022-01-19 02:00] VITALS: BP 102/60
[2022-01-19 06:00] VITALS: BP 88/47
--- NOTE | 2022-01-19 06:45 | NUR ---
Bedside report to AM LOY Sanches.
--- NOTE | 2022-01-19 06:56 | NUR ---
Patient in room PCU 3015. I have received report from LOY King and had the opportunity to ask questions and assume patient care.
[2022-01-19 07:23] LABS: BASOPHILS # (AUTO) 0.1 X10'3 (0-0.2); BASOPHILS % (AUTO) 0.9 % (0-1); EOSINOPHILS # (AUTO) 0.2 X10'3 (0-0.9); EOSINOPHILS % (AUTO) 1.8 % (0-6); HEMATOCRIT 24.3 % (35.0-45.0); LYMPHOCYTES # (AUTO) 0.5 X10'3 (1.1-4.8); LYMPHOCYTES % (AUTO) 5.3 % (21-51); MEAN CORPUSCULAR HEMOGLOBIN 28.4 PG (27.0-31.0); MEAN CORPUSCULAR VOLUME 85.8 FL (78-98); MEAN PLATELET VOLUME 8.6 FL (7.4-10.4); MONOCYTES # (AUTO) 0.5 X10'3 (0-0.9); MONOCYTES % (AUTO) 4.9 % (2-12); NEUTROPHILS # (AUTO) 8.3 X10'3 (1.8-7.7); NEUTROPHILS % (AUTO) 87.1 % (42-75); PLATELET COUNT 323 X10'3 (140-440); RED BLOOD COUNT 2.83 X10'6 (4.20-5.60); RED CELL DISTRIBUTION WIDTH 16.3 % (11.5-14.5); WHITE BLOOD COUNT 9.5 X10'3 (4.5-11.0)
[2022-01-19 07:30] LABS: ALANINE AMINOTRANSFERASE 19 U/L (12-78); ALBUMIN 1.7 G/DL (3.4-5.0); ALBUMIN/GLOBULIN RATIO 0.4 (1.1-1.5); ALKALINE PHOSPHATASE 129 IU/L (46-116); ANION GAP 9 (8-16); ASPARTATE AMINO TRANSFERASE 20 U/L (10-37); BILIRUBIN,TOTAL 0.5 MG/DL (0.1-1.0); BLOOD UREA NITROGEN 10 MG/DL (7-18); BUN/CREATININE RATIO 17.5 (6.6-38.0); CALCIUM 8.1 MG/DL (8.5-10.1); CHLORIDE 102 MMOL/L (99-107); CREATININE 0.57 MG/DL (0.40-0.90); GLUCOSE 94 MG/DL (70-104); MAGNESIUM 1.7 MG/DL (1.5-2.4); POTASSIUM 4.1 MMOL/L (3.5-5.1); SODIUM 138 MMOL/L (135-145); TOTAL CARBON DIOXIDE 26.7 MMOL/L (24-32); eGFR > 90 ML/MIN
[2022-01-19] MEDS: docusate sod 100mg capsule PO SCH ×2 (07:57→19:39)
[2022-01-19] MEDS: ferrous sulfate 325mg tablet PO SCH ×3 (07:58→17:13)
[2022-01-19] MEDS: ascorbic acid 500mg tablet PO SCH ×3 (07:58→17:13)
[2022-01-19] MEDS: Neutra Phos packet PO SCH ×2 (07:58→19:40)
[2022-01-19] MEDS: multivitamins, therapeutics tablet PO SCH (07:58)
[2022-01-19] MEDS: fluconazole 100mg tablet PO SCH (07:58)
[2022-01-19] MEDS: folic acid/vitamin B complex w/vitamin C 0.8mg tablet PO SCH (07:58)
[2022-01-19] MEDS: thiamine 100mg tablet PO SCH ×2 (07:58→19:40)
[2022-01-19] MEDS: CefTRIAXone 2gm/D5W 50ml BAG 50 ML IV SCH (09:31)
[2022-01-19 11:00] VITALS: BP 103/56
[2022-01-19 15:00] VITALS: BP 109/69
[2022-01-19 18:00] VITALS: BP 99/50
--- NOTE | 2022-01-19 18:46 | NUR ---
Problems reprioritized. Patient report given, questions answered & plan of care reviewed with LOY De La Cruz.
[2022-01-19] MEDS: ibuprofen tablet 400 MG TABLET PO PRN (19:42)
[2022-01-19] MEDS: sennosides/docusate sodium tablet PO SCH (20:06)
[2022-01-19] MEDS: famotidine 20mg tablet PO SCH (20:06)
[2022-01-19 23:33] VITALS: BP 99/53
[2022-01-20 02:44] VITALS: BP 99/55
[2022-01-20 06:00] VITALS: BP 102/51
[2022-01-20] MEDS: docusate sod 100mg capsule PO SCH ×2 (08:00→19:20)
[2022-01-20 08:49] LABS: BASOPHILS # (AUTO) 0.1 X10'3 (0-0.2); BASOPHILS % (AUTO) 1.5 % (0-1); EOSINOPHILS # (AUTO) 0.1 X10'3 (0-0.9); HEMATOCRIT 24.5 % (35.0-45.0); HEMOGLOBIN 7.9 g/dl (12.0-16.0); LYMPHOCYTES # (AUTO) 0.8 X10'3 (1.1-4.8); LYMPHOCYTES % (AUTO) 16.8 % (21-51); MEAN CORPUSCULAR HGB CONC 32.4 g/dL (33.0-36.5); MEAN CORPUSCULAR VOLUME 86.6 FL (78-98); MEAN PLATELET VOLUME 8.2 FL (7.4-10.4); MONOCYTES # (AUTO) 0.7 X10'3 (0-0.9); MONOCYTES % (AUTO) 13.7 % (2-12); NEUTROPHILS # (AUTO) 3.2 X10'3 (1.8-7.7); PLATELET COUNT 283 X10'3 (140-440); RED BLOOD COUNT 2.83 X10'6 (4.20-5.60); RED CELL DISTRIBUTION WIDTH 16.4 % (11.5-14.5); WHITE BLOOD COUNT 4.9 X10'3 (4.5-11.0)
[2022-01-20 09:16] LABS: ALANINE AMINOTRANSFERASE 19 U/L (12-78); ALBUMIN 1.8 G/DL (3.4-5.0); ALBUMIN/GLOBULIN RATIO 0.4 (1.1-1.5); ALKALINE PHOSPHATASE 129 IU/L (46-116); ANION GAP 9 (8-16); ASPARTATE AMINO TRANSFERASE 15 U/L (10-37); BILIRUBIN,TOTAL 0.5 MG/DL (0.1-1.0); BLOOD UREA NITROGEN 10 MG/DL (7-18); BUN/CREATININE RATIO 14.1 (6.6-38.0); CALCIUM 8.2 MG/DL (8.5-10.1); CHLORIDE 102 MMOL/L (99-107); CREATININE 0.71 MG/DL (0.40-0.90); GLUCOSE 126 MG/DL (70-104); MAGNESIUM 1.7 MG/DL (1.5-2.4); PHOSPHORUS 4.7 MG/DL (2.3-4.5); POTASSIUM 3.9 MMOL/L (3.5-5.1); SODIUM 136 MMOL/L (135-145); TOTAL CARBON DIOXIDE 24.6 MMOL/L (24-32); TOTAL PROTEIN 6.2 G/DL (6.4-8.2); eGFR 87 ML/MIN
[2022-01-20] MEDS: CefTRIAXone 2gm/D5W 50ml BAG 50 ML IV SCH (10:18)
[2022-01-20] MEDS: ascorbic acid 500mg tablet PO SCH ×3 (10:19→16:55)
[2022-01-20] MEDS: Neutra Phos packet PO SCH ×2 (10:19→19:20)
[2022-01-20] MEDS: thiamine 100mg tablet PO SCH ×2 (10:19→19:22)
[2022-01-20] MEDS: fluconazole 100mg tablet PO SCH (10:19)
[2022-01-20] MEDS: folic acid/vitamin B complex w/vitamin C 0.8mg tablet PO SCH (10:19)
[2022-01-20] MEDS: multivitamins, therapeutics tablet PO SCH (10:20)
[2022-01-20] MEDS: ferrous sulfate 325mg tablet PO SCH ×3 (10:20→16:55)
[2022-01-20 11:00] VITALS: BP 95/64
[2022-01-20 15:00] VITALS: BP 99/59
[2022-01-20] MEDS: ibuprofen tablet 400 MG TABLET PO PRN (15:29)
[2022-01-20 18:00] VITALS: BP 111/65
[2022-01-20] MEDS: sennosides/docusate sodium tablet PO SCH (20:03)
[2022-01-20] MEDS: famotidine 20mg tablet PO SCH (20:06)
[2022-01-20 22:33] VITALS: BP 105/54
[2022-01-21 02:17] VITALS: BP 97/56
[2022-01-21 06:00] VITALS: BP 99/59
[2022-01-21 06:54] LABS: BASOPHILS # (AUTO) 0.1 X10'3 (0-0.2); BASOPHILS % (AUTO) 1.9 % (0-1); EOSINOPHILS # (AUTO) 0.2 X10'3 (0-0.9); EOSINOPHILS % (AUTO) 4.4 % (0-6); HEMATOCRIT 23.4 % (35.0-45.0); HEMOGLOBIN 7.6 g/dl (12.0-16.0); LYMPHOCYTES # (AUTO) 0.9 X10'3 (1.1-4.8); LYMPHOCYTES % (AUTO) 23.3 % (21-51); MEAN CORPUSCULAR HGB CONC 32.6 g/dL (33.0-36.5); MEAN CORPUSCULAR VOLUME 85.8 FL (78-98); MEAN PLATELET VOLUME 8.5 FL (7.4-10.4); MONOCYTES # (AUTO) 0.8 X10'3 (0-0.9); MONOCYTES % (AUTO) 19.8 % (2-12); NEUTROPHILS # (AUTO) 1.9 X10'3 (1.8-7.7); NEUTROPHILS % (AUTO) 50.6 % (42-75); PLATELET COUNT 280 X10'3 (140-440); RED BLOOD COUNT 2.73 X10'6 (4.20-5.60); RED CELL DISTRIBUTION WIDTH 16.7 % (11.5-14.5); WHITE BLOOD COUNT 3.8 X10'3 (4.5-11.0)
[2022-01-21 07:22] LABS: ALANINE AMINOTRANSFERASE 19 U/L (12-78); ALBUMIN 1.8 G/DL (3.4-5.0); ALBUMIN/GLOBULIN RATIO 0.4 (1.1-1.5); ALKALINE PHOSPHATASE 123 IU/L (46-116); ANION GAP 7 (8-16); ASPARTATE AMINO TRANSFERASE 23 U/L (10-37); BILIRUBIN,TOTAL 0.4 MG/DL (0.1-1.0); BLOOD UREA NITROGEN 10 MG/DL (7-18); BUN/CREATININE RATIO 15.9 (6.6-38.0); CALCIUM 8.2 MG/DL (8.5-10.1); CHLORIDE 104 MMOL/L (99-107); CREATININE 0.63 MG/DL (0.40-0.90); GLUCOSE 91 MG/DL (70-104); MAGNESIUM 1.7 MG/DL (1.5-2.4); POTASSIUM 4.1 MMOL/L (3.5-5.1); SODIUM 138 MMOL/L (135-145); TOTAL CARBON DIOXIDE 26.9 MMOL/L (24-32); eGFR > 90 ML/MIN
[2022-01-21] MEDS: docusate sod 100mg capsule PO SCH ×2 (08:00→19:02)
[2022-01-21] MEDS: Neutra Phos packet PO SCH (08:00)
[2022-01-21] MEDS: ibuprofen tablet 400 MG TABLET PO PRN (08:40)
[2022-01-21] MEDS: multivitamins, therapeutics tablet PO SCH (08:40)
[2022-01-21] MEDS: ascorbic acid 500mg tablet PO SCH ×3 (08:40→17:08)
[2022-01-21] MEDS: ferrous sulfate 325mg tablet PO SCH ×3 (08:40→17:08)
[2022-01-21] MEDS: thiamine 100mg tablet PO SCH ×2 (08:40→19:02)
[2022-01-21] MEDS: folic acid/vitamin B complex w/vitamin C 0.8mg tablet PO SCH (08:40)
[2022-01-21] MEDS: CefTRIAXone 2gm/D5W 50ml BAG 50 ML IV SCH (08:43)
[2022-01-21 18:00] VITALS: BP 108/66
[2022-01-21] MEDS: sennosides/docusate sodium tablet PO SCH (20:03)
[2022-01-21] MEDS: famotidine 20mg tablet PO SCH (20:12)
[2022-01-21 22:21] VITALS: BP 108/59
[2022-01-22 02:04] VITALS: BP 98/52
[2022-01-22 07:22] LABS: ALANINE AMINOTRANSFERASE 18 U/L (12-78); ALBUMIN 1.9 G/DL (3.4-5.0); ALBUMIN/GLOBULIN RATIO 0.4 (1.1-1.5); ALKALINE PHOSPHATASE 116 IU/L (46-116); ANION GAP 8 (8-16); ASPARTATE AMINO TRANSFERASE 20 U/L (10-37); BILIRUBIN,TOTAL 0.4 MG/DL (0.1-1.0); BLOOD UREA NITROGEN 11 MG/DL (7-18); BUN/CREATININE RATIO 16.9 (6.6-38.0); CHLORIDE 104 MMOL/L (99-107); CREATININE 0.65 MG/DL (0.40-0.90); GLUCOSE 94 MG/DL (70-104); MAGNESIUM 1.7 MG/DL (1.5-2.4); PHOSPHORUS 4.6 MG/DL (2.3-4.5); SODIUM 138 MMOL/L (135-145); TOTAL CARBON DIOXIDE 26.5 MMOL/L (24-32); TOTAL PROTEIN 6.2 G/DL (6.4-8.2); eGFR > 90 ML/MIN
[2022-01-22 07:33] LABS: BASOPHILS # (AUTO) 0.1 X10'3 (0-0.2); BASOPHILS % (AUTO) 1.7 % (0-1); EOSINOPHILS # (AUTO) 0.2 X10'3 (0-0.9); EOSINOPHILS % (AUTO) 4.9 % (0-6); HEMOGLOBIN 7.5 g/dl (12.0-16.0); LYMPHOCYTES # (AUTO) 1.1 X10'3 (1.1-4.8); LYMPHOCYTES % (AUTO) 31.1 % (21-51); MEAN CORPUSCULAR HEMOGLOBIN 28.2 PG (27.0-31.0); MEAN CORPUSCULAR HGB CONC 32.7 g/dL (33.0-36.5); MEAN CORPUSCULAR VOLUME 86.2 FL (78-98); MEAN PLATELET VOLUME 8.7 FL (7.4-10.4); MONOCYTES # (AUTO) 0.7 X10'3 (0-0.9); MONOCYTES % (AUTO) 20.2 % (2-12); NEUTROPHILS # (AUTO) 1.5 X10'3 (1.8-7.7); NEUTROPHILS % (AUTO) 42.1 % (42-75); PLATELET COUNT 255 X10'3 (140-440); RED BLOOD COUNT 2.67 X10'6 (4.20-5.60); RED CELL DISTRIBUTION WIDTH 16.8 % (11.5-14.5); WHITE BLOOD COUNT 3.6 X10'3 (4.5-11.0)
[2022-01-22] MEDS: docusate sod 100mg capsule PO SCH ×2 (08:00→20:00)
[2022-01-22 08:08] LABS: TOTAL CELLS COUNTED 100
[2022-01-22 08:09] LABS: ANISOCYTOSIS 1+; PLATELET ESTIMATE NORMAL
[2022-01-22 08:10] LABS: POLYCHROMASIA FEW; STOMATOCYTES FEW
--- NOTE | 2022-01-22 08:24 | NUR ---
Reassessment: Pt continues eating well, documented with average ~75% PO intake which meets 100% estimated energy needs and 75% estimated protein needs, not including the additional food items pt is receiving on meal trays. LBM 01/21 receiving routine bowel care. No change to recommendations, will continue to monitor. Recommendations: 1. Continue regular diet 2. Alternate cottage cheese and yogurt WB, smoothies WL, shakes WS 3. Routine bowel care 4. Weekly scaled wts Addendum: 01/22/22 at [address] Amended: Links added.
[2022-01-22] MEDS: CefTRIAXone 2gm/D5W 50ml BAG 50 ML IV SCH (08:51)
[2022-01-22] MEDS: folic acid/vitamin B complex w/vitamin C 0.8mg tablet PO SCH (08:51)
[2022-01-22] MEDS: multivitamins, therapeutics tablet PO SCH (08:51)
[2022-01-22] MEDS: ferrous sulfate 325mg tablet PO SCH ×3 (08:51→16:40)
[2022-01-22] MEDS: ascorbic acid 500mg tablet PO SCH ×3 (08:51→16:40)
[2022-01-22] MEDS: thiamine 100mg tablet PO SCH ×2 (08:52→20:29)
[2022-01-22 11:00] VITALS: BP 116/54
--- NOTE | 2022-01-22 13:57 | NUR ---
Message: ELEAZAR ON TELE@[phone], CAN I MOVE 3015A TO LOWER LEVEL OF CARE WITHOUT TELE MONITORING? PATIENT HAS NO TELE ON NOW. THANK YOU.
[2022-01-22 16:44] VITALS: BP 107/68
[2022-01-22 18:00] VITALS: BP 107/70
[2022-01-22] MEDS: famotidine 20mg tablet PO SCH (20:29)
[2022-01-22] MEDS: sennosides/docusate sodium tablet PO SCH (21:00)
[2022-01-22 22:00] VITALS: BP 114/65
[2022-01-23 02:00] VITALS: BP 108/61
[2022-01-23 06:00] VITALS: BP 102/60
--- NOTE | 2022-01-23 06:15 | NUR ---
Problems reprioritized. Patient report given, questions answered & plan of care reviewed with LOY VERGARA.
[2022-01-23 07:26] LABS: BASOPHILS # (AUTO) 0.1 X10'3 (0-0.2); BASOPHILS % (AUTO) 1.5 % (0-1); EOSINOPHILS # (AUTO) 0.2 X10'3 (0-0.9); EOSINOPHILS % (AUTO) 5.7 % (0-6); HEMATOCRIT 23.6 % (35.0-45.0); HEMOGLOBIN 7.8 g/dl (12.0-16.0); LYMPHOCYTES # (AUTO) 1.1 X10'3 (1.1-4.8); LYMPHOCYTES % (AUTO) 29.9 % (21-51); MEAN CORPUSCULAR HEMOGLOBIN 28.3 PG (27.0-31.0); MEAN CORPUSCULAR HGB CONC 32.9 g/dL (33.0-36.5); MEAN CORPUSCULAR VOLUME 86.1 FL (78-98); MEAN PLATELET VOLUME 8.1 FL (7.4-10.4); MONOCYTES # (AUTO) 0.8 X10'3 (0-0.9); MONOCYTES % (AUTO) 20.5 % (2-12); NEUTROPHILS # (AUTO) 1.6 X10'3 (1.8-7.7); NEUTROPHILS % (AUTO) 42.4 % (42-75); PLATELET COUNT 267 X10'3 (140-440); RED BLOOD COUNT 2.74 X10'6 (4.20-5.60); RED CELL DISTRIBUTION WIDTH 16.6 % (11.5-14.5); WHITE BLOOD COUNT 3.7 X10'3 (4.5-11.0)
[2022-01-23] MEDS: docusate sod 100mg capsule PO SCH ×2 (08:00→20:00)
[2022-01-23 08:04] LABS: ALANINE AMINOTRANSFERASE 16 U/L (12-78); ALBUMIN 1.9 G/DL (3.4-5.0); ALBUMIN/GLOBULIN RATIO 0.4 (1.1-1.5); ALKALINE PHOSPHATASE 120 IU/L (46-116); ANION GAP 8 (8-16); ASPARTATE AMINO TRANSFERASE 21 U/L (10-37); BILIRUBIN,TOTAL 0.5 MG/DL (0.1-1.0); BLOOD UREA NITROGEN 11 MG/DL (7-18); BUN/CREATININE RATIO 19.3 (6.6-38.0); CALCIUM 8.3 MG/DL (8.5-10.1); CHLORIDE 104 MMOL/L (99-107); CREATININE 0.57 MG/DL (0.40-0.90); GLUCOSE 95 MG/DL (70-104); MAGNESIUM 1.7 MG/DL (1.5-2.4); PHOSPHORUS 5.1 MG/DL (2.3-4.5); POTASSIUM 3.9 MMOL/L (3.5-5.1); SODIUM 138 MMOL/L (135-145); TOTAL CARBON DIOXIDE 26.2 MMOL/L (24-32); TOTAL PROTEIN 6.3 G/DL (6.4-8.2); eGFR > 90 ML/MIN
[2022-01-23] MEDS: thiamine 100mg tablet PO SCH ×2 (09:08→21:03)
[2022-01-23] MEDS: CefTRIAXone 2gm/D5W 50ml BAG 50 ML IV SCH (09:08)
[2022-01-23] MEDS: ascorbic acid 500mg tablet PO SCH ×3 (09:08→18:04)
[2022-01-23] MEDS: folic acid/vitamin B complex w/vitamin C 0.8mg tablet PO SCH (09:08)
[2022-01-23] MEDS: multivitamins, therapeutics tablet PO SCH (09:09)
[2022-01-23] MEDS: ferrous sulfate 325mg tablet PO SCH ×3 (09:09→18:04)
[2022-01-23 13:00] VITALS: BP 100/52
--- NOTE | 2022-01-23 18:20 | NUR ---
Patient in room PCU 3015. I have received report from kirsten Clark and had the opportunity to ask questions and assume patient care.
[2022-01-23 19:00] VITALS: BP 106/68
[2022-01-23] MEDS: sennosides/docusate sodium tablet PO SCH (20:50)
[2022-01-23] MEDS: famotidine 20mg tablet PO SCH (21:03)
[2022-01-23 22:00] VITALS: BP 123/70
[2022-01-24 01:58] VITALS: BP 117/68
[2022-01-24 06:00] VITALS: BP 97/61
--- NOTE | 2022-01-24 06:28 | NUR ---
Problems reprioritized. Patient report given, questions answered & plan of care reviewed with LOY GAONA.
--- NOTE | 2022-01-24 06:40 | NUR ---
Patient in room PCU 3015. I have received report from ISABELL GRANADO and had the opportunity to ask questions and assume patient care.
[2022-01-24] MEDS: docusate sod 100mg capsule PO SCH ×2 (08:00→20:00)
[2022-01-24] MEDS: thiamine 100mg tablet PO SCH ×2 (08:12→19:59)
[2022-01-24] MEDS: multivitamins, therapeutics tablet PO SCH (08:12)
[2022-01-24] MEDS: ascorbic acid 500mg tablet PO SCH ×3 (08:12→16:38)
[2022-01-24] MEDS: folic acid/vitamin B complex w/vitamin C 0.8mg tablet PO SCH (08:12)
[2022-01-24] MEDS: ferrous sulfate 325mg tablet PO SCH ×3 (08:12→16:38)
[2022-01-24 10:35] VITALS: BP 108/76
--- NOTE | 2022-01-24 12:56 | NUR ---
Relieving primary RN Priscilla for lunch. Administered ferrous sulfate and vitamin C. Scanner on computer was not working and medications were verified with another RN Allora.
[2022-01-24 13:55] VITALS: BP 119/69
--- NOTE | 2022-01-24 17:13 | NUR ---
Wound care performed this AM shift. Q2h repositioning by nursing staff. pt dangled on edge of bed with physical therapy. pt has 600ml urine output, no BM. Will continue to monitor patient
[2022-01-24 18:00] VITALS: BP 88/52
--- NOTE | 2022-01-24 18:13 | NUR ---
Problems reprioritized. Patient report given, questions answered & plan of care reviewed with av curtis.
[2022-01-24] MEDS: famotidine 20mg tablet PO SCH (20:00)
[2022-01-24] MEDS: sennosides/docusate sodium tablet PO SCH (21:00)
[2022-01-24 22:00] VITALS: BP 101/36
[2022-01-25 02:44] VITALS: BP 103/57
[2022-01-25 06:00] VITALS: BP 104/67
--- NOTE | 2022-01-25 06:26 | NUR ---
Problems reprioritized. Patient report given, questions answered & plan of care reviewed with LOY GAONA.
--- NOTE | 2022-01-25 06:29 | NUR ---
Patient in room PCU 3015. I have received report from ISABELL GRANADO and had the opportunity to ask questions and assume patient care.
[2022-01-25 06:55] LABS: BASOPHILS # (AUTO) 0.1 X10'3 (0-0.2); BASOPHILS % (AUTO) 1.4 % (0-1); EOSINOPHILS # (AUTO) 0.3 X10'3 (0-0.9); HEMATOCRIT 26.1 % (35.0-45.0); HEMOGLOBIN 8.8 g/dl (12.0-16.0); LYMPHOCYTES # (AUTO) 1.4 X10'3 (1.1-4.8); LYMPHOCYTES % (AUTO) 31.4 % (21-51); MEAN CORPUSCULAR HEMOGLOBIN 29.1 PG (27.0-31.0); MEAN CORPUSCULAR HGB CONC 33.6 g/dL (33.0-36.5); MEAN CORPUSCULAR VOLUME 86.7 FL (78-98); MEAN PLATELET VOLUME 7.9 FL (7.4-10.4); MONOCYTES # (AUTO) 0.8 X10'3 (0-0.9); MONOCYTES % (AUTO) 18.6 % (2-12); NEUTROPHILS # (AUTO) 1.8 X10'3 (1.8-7.7); NEUTROPHILS % (AUTO) 41.6 % (42-75); PLATELET COUNT 296 X10'3 (140-440); RED BLOOD COUNT 3.01 X10'6 (4.20-5.60); WHITE BLOOD COUNT 4.4 X10'3 (4.5-11.0)
[2022-01-25 07:03] LABS: ANION GAP 8 (8-16); BLOOD UREA NITROGEN 13 MG/DL (7-18); BUN/CREATININE RATIO 20.3 (6.6-38.0); CHLORIDE 103 MMOL/L (99-107); CREATININE 0.64 MG/DL (0.40-0.90); GLUCOSE 91 MG/DL (70-104); POTASSIUM 3.9 MMOL/L (3.5-5.1); SODIUM 137 MMOL/L (135-145); TOTAL CARBON DIOXIDE 25.8 MMOL/L (24-32)
[2022-01-25 07:04] LABS: ALANINE AMINOTRANSFERASE 24 U/L (12-78); ALBUMIN 2.2 G/DL (3.4-5.0); ALBUMIN/GLOBULIN RATIO 0.5 (1.1-1.5); ALKALINE PHOSPHATASE 130 IU/L (46-116); ASPARTATE AMINO TRANSFERASE 25 U/L (10-37); BILIRUBIN,TOTAL 0.4 MG/DL (0.1-1.0); CALCIUM 8.6 MG/DL (8.5-10.1); TOTAL PROTEIN 6.9 G/DL (6.4-8.2); eGFR > 90 ML/MIN
[2022-01-25] MEDS: docusate sod 100mg capsule PO SCH ×2 (08:07→19:30)
[2022-01-25] MEDS: thiamine 100mg tablet PO SCH ×2 (08:07→19:35)
[2022-01-25] MEDS: ibuprofen tablet 400 MG TABLET PO PRN (08:07)
[2022-01-25] MEDS: multivitamins, therapeutics tablet PO SCH (08:07)
[2022-01-25] MEDS: ascorbic acid 500mg tablet PO SCH ×3 (08:08→16:48)
[2022-01-25] MEDS: folic acid/vitamin B complex w/vitamin C 0.8mg tablet PO SCH (08:08)
[2022-01-25] MEDS: ferrous sulfate 325mg tablet PO SCH ×3 (08:08→16:48)
[2022-01-25 10:54] VITALS: BP 99/66
[2022-01-25 14:38] VITALS: BP 99/54
[2022-01-25 18:00] VITALS: BP 103/57
--- NOTE | 2022-01-25 18:17 | NUR ---
Patient in room PCU 3015. I have received report from CANDELARIA and had the opportunity to ask questions and assume patient care.
--- NOTE | 2022-01-25 18:26 | NUR ---
Problems reprioritized. Patient report given, questions answered & plan of care reviewed with JAYSHREE RN.
[2022-01-25] MEDS: sennosides/docusate sodium tablet PO SCH (19:31)
[2022-01-25] MEDS: famotidine 20mg tablet PO SCH (19:31)
[2022-01-25 22:00] VITALS: BP 95/51
[2022-01-26 02:00] VITALS: BP 109/71
[2022-01-26 06:30] VITALS: BP 96/56
--- NOTE | 2022-01-26 06:46 | NUR ---
Patient in room PCU 3015. I have received report from Joann and had the opportunity to ask questions and assume patient care.
--- NOTE | 2022-01-26 06:56 | NUR ---
Problems reprioritized. Patient report given, questions answered & plan of care reviewed with Peggy GRANADO.
--- NOTE | 2022-01-26 07:06 | NUR ---
Patient in room PCU 3015. I have received report from Joann GRANADO and had the opportunity to ask questions and assume patient care.
[2022-01-26] MEDS: docusate sod 100mg capsule PO SCH ×2 (08:00→20:00)
--- NOTE | 2022-01-26 08:13 | NUR ---
Reassessment: Pt continues eating well, documented with average ~75% PO intake which meets 100% estimated energy needs and 75% estimated protein needs, not including the additional food items pt is receiving on meal trays. Pt documented w/ small stage II pressure injury to R sacrum. LBM 01/25 receiving routine bowel care. No change to recommendations, will continue to monitor. Recommendations: 1. Continue regular diet 2. Alternate cottage cheese and yogurt WB, smoothies WL, shakes WS 3. Routine bowel care 4. Weekly scaled wts Addendum: 01/26/22 at [address] Amended: Links added.
[2022-01-26] MEDS: ascorbic acid 500mg tablet PO SCH ×3 (09:28→17:42)
[2022-01-26] MEDS: multivitamins, therapeutics tablet PO SCH (09:28)
[2022-01-26] MEDS: thiamine 100mg tablet PO SCH ×2 (09:28→20:39)
[2022-01-26] MEDS: folic acid/vitamin B complex w/vitamin C 0.8mg tablet PO SCH (09:28)
[2022-01-26] MEDS: ferrous sulfate 325mg tablet PO SCH ×3 (09:28→17:42)
[2022-01-26 11:00] VITALS: BP 107/76
[2022-01-26 15:36] VITALS: BP 123/77
[2022-01-26 18:00] VITALS: BP 97/62
--- NOTE | 2022-01-26 18:00 | NUR ---
Patient in room PCU 3015. I have received report from Loraine GRANADO and had the opportunity to ask questions and assume patient care.
--- NOTE | 2022-01-26 18:13 | NUR ---
Problems reprioritized. Patient report given, questions answered & plan of care reviewed with Joann GRANADO.
[2022-01-26] MEDS: famotidine 20mg tablet PO SCH (20:40)
[2022-01-26] MEDS: sennosides/docusate sodium tablet PO SCH (20:40)
[2022-01-26 22:00] VITALS: BP 105/64
[2022-01-27 02:00] VITALS: BP 108/60
--- NOTE | 2022-01-27 06:23 | NUR ---
Patient in room PCU 3015. I have received report from Joann and had the opportunity to ask questions and assume patient care.
[2022-01-27 07:00] VITALS: BP 149/82
[2022-01-27] MEDS: thiamine 100mg tablet PO SCH ×2 (07:52→19:45)
[2022-01-27] MEDS: folic acid/vitamin B complex w/vitamin C 0.8mg tablet PO SCH (07:52)
[2022-01-27] MEDS: multivitamins, therapeutics tablet PO SCH (07:52)
[2022-01-27] MEDS: ferrous sulfate 325mg tablet PO SCH ×3 (07:52→17:46)
[2022-01-27] MEDS: ascorbic acid 500mg tablet PO SCH ×3 (07:52→17:46)
[2022-01-27] MEDS: docusate sod 100mg capsule PO SCH ×2 (07:53→19:48)
[2022-01-27 11:40] VITALS: BP 104/61
[2022-01-27 18:00] VITALS: BP 104/69
--- NOTE | 2022-01-27 18:00 | NUR ---
Patient in room PCU 3015. I have received report from Loraine GRANADO and had the opportunity to ask questions and assume patient care.
--- NOTE | 2022-01-27 18:14 | NUR ---
Problems reprioritized. Patient report given by FASHION ADVISER orientee, questions answered & plan of care reviewed with Joann.
--- NOTE | 2022-01-27 18:14 | NUR ---
Problems reprioritized. Patient report given, questions answered & plan of care reviewed with Joann GRANADO.
[2022-01-27] MEDS: sennosides/docusate sodium tablet PO SCH (19:40)
[2022-01-27] MEDS: famotidine 20mg tablet PO SCH (19:47)
[2022-01-27 23:16] VITALS: BP 108/58
[2022-01-28 02:02] VITALS: BP 88/56
[2022-01-28 06:00] VITALS: BP 91/54
--- NOTE | 2022-01-28 06:41 | NUR ---
Patient in room PCU 3015. I have received report from Joann and had the opportunity to ask questions and assume patient care.
--- NOTE | 2022-01-28 06:47 | NUR ---
Problems reprioritized. Patient report given, questions answered & plan of care reviewed with Bernarda GRANADO.
[2022-01-28] MEDS: docusate sod 100mg capsule PO SCH ×2 (08:00→19:38)
[2022-01-28] MEDS: folic acid/vitamin B complex w/vitamin C 0.8mg tablet PO SCH (08:48)
[2022-01-28] MEDS: thiamine 100mg tablet PO SCH ×2 (08:48→19:39)
[2022-01-28] MEDS: multivitamins, therapeutics tablet PO SCH (08:48)
[2022-01-28] MEDS: ferrous sulfate 325mg tablet PO SCH ×3 (08:48→17:20)
[2022-01-28] MEDS: ascorbic acid 500mg tablet PO SCH ×3 (08:48→17:20)
[2022-01-28 13:40] VITALS: BP 97/61
--- NOTE | 2022-01-28 18:16 | NUR ---
Problems reprioritized. Patient report given, questions answered & plan of care reviewed with Eunice.
[2022-01-28 19:00] VITALS: BP 103/72
[2022-01-28] MEDS: sennosides/docusate sodium tablet PO SCH (19:39)
[2022-01-28] MEDS: famotidine 20mg tablet PO SCH (19:39)
[2022-01-28 22:00] VITALS: BP 105/76
[2022-01-29 02:00] VITALS: BP 87/56
[2022-01-29 06:00] VITALS: BP 136/77
[2022-01-29] MEDS: multivitamins, therapeutics tablet PO SCH (07:41)
[2022-01-29] MEDS: thiamine 100mg tablet PO SCH ×2 (07:41→21:04)
[2022-01-29] MEDS: ascorbic acid 500mg tablet PO SCH ×3 (07:41→16:59)
[2022-01-29] MEDS: folic acid/vitamin B complex w/vitamin C 0.8mg tablet PO SCH (07:41)
[2022-01-29] MEDS: ferrous sulfate 325mg tablet PO SCH ×3 (07:41→16:59)
[2022-01-29] MEDS: docusate sod 100mg capsule PO SCH ×2 (07:42→20:00)
[2022-01-29 11:59] VITALS: BP 97/62
[2022-01-29 18:00] VITALS: BP 122/77
--- NOTE | 2022-01-29 18:00 | NUR ---
Patient in room PCU 3015. I have received report from Amber GRANADO and had the opportunity to ask questions and assume patient care.
[2022-01-29] MEDS: sennosides/docusate sodium tablet PO SCH (21:00)
[2022-01-29] MEDS: famotidine 20mg tablet PO SCH (21:04)
[2022-01-29 22:00] VITALS: BP 115/75
[2022-01-30 02:00] VITALS: BP 123/78
--- NOTE | 2022-01-30 06:48 | NUR ---
Problems reprioritized. Patient report given, questions answered & plan of care reviewed with Silviano GRANADO.
[2022-01-30 07:00] VITALS: BP 99/62
[2022-01-30] MEDS: ascorbic acid 500mg tablet PO SCH ×3 (09:16→16:41)
[2022-01-30] MEDS: docusate sod 100mg capsule PO SCH ×2 (09:16→20:00)
[2022-01-30] MEDS: folic acid/vitamin B complex w/vitamin C 0.8mg tablet PO SCH (09:16)
[2022-01-30] MEDS: ferrous sulfate 325mg tablet PO SCH ×3 (09:16→16:41)
[2022-01-30] MEDS: multivitamins, therapeutics tablet PO SCH (09:16)
[2022-01-30] MEDS: thiamine 100mg tablet PO SCH ×2 (09:16→20:16)
[2022-01-30 11:00] VITALS: BP 109/69
[2022-01-30 15:00] VITALS: BP 98/53
[2022-01-30 18:00] VITALS: BP 106/56
--- NOTE | 2022-01-30 18:00 | NUR ---
Patient in room PCU 3015. I have received report from Silviano GRANADO and had the opportunity to ask questions and assume patient care.
[2022-01-30] MEDS: famotidine 20mg tablet PO SCH (20:16)
[2022-01-30] MEDS: sennosides/docusate sodium tablet PO SCH (20:17)
[2022-01-30 22:00] VITALS: BP 110/65
[2022-01-31 02:00] VITALS: BP 101/69
--- NOTE | 2022-01-31 06:34 | NUR ---
Problems reprioritized. Patient report given, questions answered & plan of care reviewed with Silviano GRANADO.
[2022-01-31 07:00] VITALS: BP 104/62
[2022-01-31] MEDS: docusate sod 100mg capsule PO SCH ×2 (07:48→20:00)
[2022-01-31] MEDS: thiamine 100mg tablet PO SCH ×2 (07:48→20:34)
[2022-01-31] MEDS: multivitamins, therapeutics tablet PO SCH (07:48)
[2022-01-31] MEDS: ascorbic acid 500mg tablet PO SCH ×3 (07:48→17:05)
[2022-01-31] MEDS: folic acid/vitamin B complex w/vitamin C 0.8mg tablet PO SCH (07:48)
[2022-01-31] MEDS: ferrous sulfate 325mg tablet PO SCH ×3 (07:48→17:05)
[2022-01-31 10:44] VITALS: BP_SYST 100; BP_SYST 106; BP_DIAS 58; BP_DIAS 59
[2022-01-31 15:00] VITALS: BP 98/62
[2022-01-31 18:00] VITALS: BP 89/55
--- NOTE | 2022-01-31 18:00 | NUR ---
Patient in room PCU 3015. I have received report from Silviano GRANADO and had the opportunity to ask questions and assume patient care.
[2022-01-31] MEDS: famotidine 20mg tablet PO SCH (20:34)
[2022-01-31] MEDS: sennosides/docusate sodium tablet PO SCH (20:43)
[2022-01-31 22:00] VITALS: BP 105/61
[2022-02-01 02:00] VITALS: BP 112/67
[2022-02-01 06:00] VITALS: BP 89/52
--- NOTE | 2022-02-01 06:04 | NUR ---
Problems reprioritized. Patient report given, questions answered & plan of care reviewed with Amber GRANADO.
[2022-02-01] MEDS: folic acid/vitamin B complex w/vitamin C 0.8mg tablet PO SCH (07:52)
[2022-02-01] MEDS: multivitamins, therapeutics tablet PO SCH (07:53)
[2022-02-01] MEDS: ferrous sulfate 325mg tablet PO SCH ×3 (07:53→17:07)
[2022-02-01] MEDS: ascorbic acid 500mg tablet PO SCH ×3 (07:53→17:07)
[2022-02-01] MEDS: docusate sod 100mg capsule PO SCH ×2 (07:53→20:41)
[2022-02-01] MEDS: thiamine 100mg tablet PO SCH ×2 (07:53→20:42)
[2022-02-01 12:20] VITALS: BP 114/69
[2022-02-01 16:57] VITALS: BP 100/61
[2022-02-01 18:00] VITALS: BP 110/68
[2022-02-01] MEDS: famotidine 20mg tablet PO SCH (20:42)
[2022-02-01] MEDS: sennosides/docusate sodium tablet PO SCH (21:00)
[2022-02-01 22:00] VITALS: BP 101/45
[2022-02-02 02:00] VITALS: BP 97/51
[2022-02-02 06:00] VITALS: BP 100/56
--- NOTE | 2022-02-02 06:35 | NUR ---
Problems reprioritized. Patient report given, questions answered & plan of care reviewed with matt GRANADO
[2022-02-02] MEDS: multivitamins, therapeutics tablet PO SCH (07:49)
[2022-02-02] MEDS: folic acid/vitamin B complex w/vitamin C 0.8mg tablet PO SCH (07:49)
[2022-02-02] MEDS: thiamine 100mg tablet PO SCH ×2 (07:50→20:02)
[2022-02-02] MEDS: ferrous sulfate 325mg tablet PO SCH ×3 (07:50→17:21)
[2022-02-02] MEDS: ascorbic acid 500mg tablet PO SCH ×3 (07:50→17:21)
[2022-02-02] MEDS: docusate sod 100mg capsule PO SCH ×2 (07:51→20:02)
[2022-02-02 12:39] VITALS: BP 103/50
[2022-02-02 18:00] VITALS: BP 118/71
[2022-02-02] MEDS: famotidine 20mg tablet PO SCH (20:02)
[2022-02-02] MEDS: sennosides/docusate sodium tablet PO SCH (21:00)
[2022-02-02 22:00] VITALS: BP 101/55
[2022-02-03 02:00] VITALS: BP 99/58
[2022-02-03 06:00] VITALS: BP 99/60
--- NOTE | 2022-02-03 06:08 | NUR ---
Problems reprioritized. Patient report given, questions answered & plan of care reviewed with Alecia GRANADO
[2022-02-03] MEDS ORDERED: thiamine tablet PO (08:33)
[2022-02-03] MEDS ORDERED: FER325T PO (08:33)
[2022-02-03] MEDS: folic acid/vitamin B complex w/vitamin C 0.8mg tablet PO SCH (08:39)
[2022-02-03] MEDS: ferrous sulfate 325mg tablet PO SCH ×2 (08:40→13:09)
[2022-02-03] MEDS: ascorbic acid 500mg tablet PO SCH ×2 (08:40→13:09)
[2022-02-03] MEDS: docusate sod 100mg capsule PO SCH (08:40)
[2022-02-03] MEDS: thiamine 100mg tablet PO SCH (08:40)
[2022-02-03] MEDS: multivitamins, therapeutics tablet PO SCH (08:40)
[2022-02-03 10:30] VITALS: BP 103/64
[2022-02-03 14:16] VITALS: BP 126/75
--- NOTE | 2022-02-03 15:30 | NUR ---
All WC completed and pt dressed with tigre sling underneath pending home w/c.
--- NOTE | 2022-02-03 18:37 | NUR ---
Pt stable for d/c per MD orders. All d/c ppwk rev'd with pt. All questions, comments, concerns addressed at this time. PIV removed. Pt was placed in a w/c with personal sling underneath using tigre. [facility] [employer] p/u patient to transfer home. All personal belongings were send with patient. Reiterated the importance of follow up appts, pt verbalized understanding.
== END 2022-02-03 17:16 | disposition home health service (06) | DRG 720 ==
LOC: ER 13:11 → UNDOADMIN 18:31 → ED HOLD 18:31 → PCU 3S 01-11 07:50
PROVIDERS: ADMIT Psychiatry & Neurology Neurocritical Care; ATTEND Psychiatry & Neurology Neurocritical Care
PROC: 02HV33Z Insertion of Infusion Device into Superior Vena Cava, Percutaneous Approach (ICD-10-PCS; principal; 2022-01-09)
PROC: 30233N1 Transfusion of Nonautologous Red Blood Cells into Peripheral Vein, Percutaneous Approach (ICD-10-PCS; 2022-01-13)
DX: A41.59 Other Gram-negative sepsis (principal); N17.0 Acute kidney failure with tubular necrosis; R65.21 Severe sepsis with septic shock; G93.41 Metabolic encephalopathy; E87.20 Acidosis, unspecified; L89.159 Pressure ulcer of sacral region, unspecified stage; M32.9 Systemic lupus erythematosus, unspecified; R16.0 Hepatomegaly, not elsewhere classified; A41.1 Sepsis due to other specified staphylococcus; R17 Unspecified jaundice; E27.1 Primary adrenocortical insufficiency; E83.39 Other disorders of phosphorus metabolism; E87.1 Hypo-osmolality and hyponatremia; B37.2 Candidiasis of skin and nail; N30.01 Acute cystitis with hematuria; E66.01 Morbid (severe) obesity due to excess calories; L68.0 Hirsutism; D64.9 Anemia, unspecified; E88.09 Other disorders of plasma-protein metabolism, not elsewhere classified; N20.0 Calculus of kidney; G89.29 Other chronic pain; M47.9 Spondylosis, unspecified; M54.2 Cervicalgia; M54.9 Dorsalgia, unspecified; L03.313 Cellulitis of chest wall; B95.7 Other staphylococcus as the cause of diseases classified elsewhere; R59.0 Localized enlarged lymph nodes; B96.1 Klebsiella pneumoniae [K. pneumoniae] as the cause of diseases classified elsewhere; M79.3 Panniculitis, unspecified; Z81.8 Family history of other mental and behavioral disorders; Z87.440 Personal history of urinary (tract) infections; Z88.0 Allergy status to penicillin; Z88.6 Allergy status to analgesic agent; Z90.49 Acquired absence of other specified parts of digestive tract; Z98.1 Arthrodesis status; Z68.41 Body mass index [BMI] 40.0-44.9, adult; Z79.899 Other long term (current) drug therapy
CPT/HCPCS: 36415; 36430; 36556; 70450; 71045; 74176; 76700; 80053; 80305; 80320; 81001; 82140; 82248; 82607; 82728; 82948; 83540; 83550; 83605; 83690; 83735; 84100; 84145; 84439; 84443; 85007; 85025; 86885; 86900; 86901; 86920; 87040; 87077; 87081; 87088; 87186; 93005; 96361; 96365; 96366; 96367; 96368; 96375; 97110; 97161; 97530; 97535; 99285; A4353; A6212; A6213; A6222; A6223; A6250; A6258; A6446; A6449; C1751; G0378; J0692; J0696; J1644; J1720; J2405; J3370; J3490; J7030; J7040; J7050; J7070; J7120; P9016

== ENCOUNTER 2023-10-01 13:26 | Inpatient (IN) | payer MEDICAID ==
[~2023-10-01] VITALS: Ht 170.2 cm; Wt 54.5 kg
[~2023-10-01 13:26] MED LIST changes: -ALB0.5UD IH; +FER325T PO; -FERR324T PO; -GABA600T13 PO; -TIZA4TAB11 PO; +thiamine tablet PO
[2023-10-01 14:21] LABS: BASOPHILS # (AUTO) 0.1 X10'3 (0-0.2); BASOPHILS % (AUTO) 0.6 % (0-1); EOSINOPHILS # (AUTO) 0.3 X10'3 (0-0.9); EOSINOPHILS % (AUTO) 3.1 % (0-6); HEMATOCRIT 31.8 % (35.0-45.0); HEMOGLOBIN 10.3 g/dl (12.0-16.0); LYMPHOCYTES # (AUTO) 1.6 X10'3 (1.1-4.8); LYMPHOCYTES % (AUTO) 15.9 % (21-51); MEAN CORPUSCULAR HEMOGLOBIN 27.8 PG (27.0-31.0); MEAN CORPUSCULAR HGB CONC 32.5 g/dL (33.0-36.5); MEAN CORPUSCULAR VOLUME 85.4 FL (78-98); MEAN PLATELET VOLUME 7.2 FL (7.4-10.4); MONOCYTES # (AUTO) 1.2 X10'3 (0-0.9); MONOCYTES % (AUTO) 11.6 % (2-12); NEUTROPHILS % (AUTO) 68.8 % (42-75); PLATELET COUNT 385 X10'3 (140-440); RED BLOOD COUNT 3.72 X10'6 (4.20-5.60); RED CELL DISTRIBUTION WIDTH 16.4 % (11.5-14.5); WHITE BLOOD COUNT 10.2 X10'3 (4.5-11.0)
[2023-10-01 14:34] LABS: BILIRUBIN,URINE NEGATIVE (Neg); CLARITY,URINE CLOUDY (Clear); COLOR,URINE YELLOW (Yellow); GLUCOSE, URINE NEGATIVE (Neg); KETONES,URINE TRACE mg/dl (Neg); LEUKOCYTE ESTERASE ,URINE MODERATE (Neg); NITRITES, URINE NEGATIVE (Neg); OCCULT BLOOD,URINE MODERATE (Neg); PROTEIN,URINE 100 mg/dl (Neg); UROBILINOGEN,URINE 0.2 E.U/dL (0.2-1.0)
[2023-10-01 14:35] LABS: ALANINE AMINOTRANSFERASE 8 U/L (12-78); ALBUMIN/GLOBULIN RATIO 0.4 (1.1-1.5); ALKALINE PHOSPHATASE 107 IU/L (46-116); ANION GAP 12 (8-16); ASPARTATE AMINO TRANSFERASE 11 U/L (10-37); BILIRUBIN,TOTAL 0.4 MG/DL (0.1-1.0); BLOOD UREA NITROGEN 24 MG/DL (7-18); BUN/CREATININE RATIO 14.6 (10.0-20.0); CALCIUM 8.4 MG/DL (8.5-10.1); CHLORIDE 108 MMOL/L (99-107); CREATININE 1.64 MG/DL (0.40-0.90); ETHANOL < 10 MG/DL (<10); GLUCOSE 79 MG/DL (70-104); SODIUM 139 MMOL/L (135-145); TOTAL CARBON DIOXIDE 18.8 MMOL/L (24-32); TOTAL PROTEIN 6.9 G/DL (6.4-8.2); eGFR 33 ML/MIN
[2023-10-01 14:36] LABS: UA COLLECTION TYPE STRAIGHT CATH
[2023-10-01 14:49] LABS: URINE AMPHETAMINE SCREEN POSITIVE (Neg); URINE BARBITUATE SCREEN NEGATIVE (Neg); URINE BENZODIAZEPINES SCREEN NEGATIVE (Neg); URINE CANNABINOID SCREEN POSITIVE (Neg); URINE COCAINE SCREEN NEGATIVE (Neg); URINE METHADONE SCREEN NEGATIVE (Neg); URINE OPIATE SCREEN NEGATIVE (Neg); URINE PHENCYCLIDINE SCREEN NEGATIVE (Neg)
[2023-10-01 15:06] LABS: WBC,URINE TNTC /HPF (0-4)
[2023-10-01 15:07] LABS: BACTERIA,URINE 3+ /HPF (Neg); SQUAMOUS EPITHELIAL CELL,UR FEW /LPF (FEW)
[2023-10-01] MEDS: normal saline 1000ml 1,000 ML IV ONE (15:49)
[2023-10-01] MEDS: sulfamethoxazole/trimethoprim DS (800/160mg) tablet PO ONE (15:50)
[2023-10-01] MEDS: levoFLOXACIN-Levaquin 750MG/D5 150 ML IV STA (16:38)
[2023-10-01] MEDS ORDERED: magnesium sulf-water 4G/100mL 100 ML IV PRN (17:05)
[2023-10-01] MEDS ORDERED: magnesium hydroxide 30ml (MOM) UD suspension PO PRN (17:05)
[2023-10-01] MEDS ORDERED: mag hydrox/Alum hydrox/simeth 30ml oral suspension PO PRN (17:05)
[2023-10-01] MEDS ORDERED: potassium Cl 20 mEq SR tablet PO PRN (17:05)
[2023-10-01] MEDS ORDERED: acetaminophen 325mg tablet PO PRN (17:05)
[2023-10-01] MEDS ORDERED: magnesium Cl slow-release 64mg tablet PO PRN (17:05)
[2023-10-01] MEDS ORDERED: magnesium sulf-water 2g/50mL 50 ML IV PRN (17:05)
[2023-10-01] MEDS ORDERED: ondansetron/PF 4mg/2ml inj IV PRN (17:05)
[2023-10-01] MEDS: normal saline 1000ml 1,000 ML IV SCH ×2 (17:26→19:45)
[2023-10-01] MEDS: LidoCAINE 2% Topical Jelly 11mL syringe (UROJET) TOP ONE (18:15)
[2023-10-01] MEDS: potassium Cl 40MEQ/1/2NS 520ml 520 ML IV PRN (19:40)
[2023-10-01] MEDS: K and/or MAG REPLACEMENT MC SCH (20:00)
[2023-10-01] MEDS: docusate sod 100mg capsule PO SCH (23:00)
[2023-10-01 23:30] VITALS: RESP 18
[2023-10-01 23:45] VITALS: RESP 18
[2023-10-02] MEDS: LidoCAINE 2% Topical Jelly 11mL syringe (UROJET) TOP ONE (00:04)
[2023-10-02 05:55] LABS: BASOPHILS % (AUTO) 0.4 % (0-1); EOSINOPHILS # (AUTO) 0.2 X10'3 (0-0.9); EOSINOPHILS % (AUTO) 2.2 % (0-6); HEMATOCRIT 27.5 % (35.0-45.0); LYMPHOCYTES # (AUTO) 1.1 X10'3 (1.1-4.8); LYMPHOCYTES % (AUTO) 13.3 % (21-51); MEAN CORPUSCULAR HGB CONC 32.6 g/dL (33.0-36.5); MEAN CORPUSCULAR VOLUME 85.8 FL (78-98); MEAN PLATELET VOLUME 7.1 FL (7.4-10.4); MONOCYTES # (AUTO) 1.1 X10'3 (0-0.9); NEUTROPHILS # (AUTO) 5.8 X10'3 (1.8-7.7); NEUTROPHILS % (AUTO) 71.1 % (42-75); PLATELET COUNT 336 X10'3 (140-440); RED BLOOD COUNT 3.21 X10'6 (4.20-5.60); RED CELL DISTRIBUTION WIDTH 15.8 % (11.5-14.5); WHITE BLOOD COUNT 8.1 X10'3 (4.5-11.0)
[2023-10-02 06:00] VITALS: BP 129/112; PULSE 102; RESP 18; TEMP 97.7; O2SAT 98
[2023-10-02 06:07] LABS: ALANINE AMINOTRANSFERASE 6 U/L (12-78); ALBUMIN 1.8 G/DL (3.4-5.0); ALBUMIN/GLOBULIN RATIO 0.4 (1.1-1.5); ALKALINE PHOSPHATASE 91 IU/L (46-116); ANION GAP 15 (8-16); ASPARTATE AMINO TRANSFERASE 14 U/L (10-37); BILIRUBIN,TOTAL 0.4 MG/DL (0.1-1.0); BLOOD UREA NITROGEN 24 MG/DL (7-18); BUN/CREATININE RATIO 16.2 (10.0-20.0); CALCIUM 8.2 MG/DL (8.5-10.1); CHLORIDE 111 MMOL/L (99-107); CREATININE 1.48 MG/DL (0.40-0.90); GLUCOSE 62 MG/DL (70-104); POTASSIUM 3.3 MMOL/L (3.5-5.1); SODIUM 142 MMOL/L (135-145); TOTAL CARBON DIOXIDE 16.3 MMOL/L (24-32); TOTAL PROTEIN 6.4 G/DL (6.4-8.2); eGFR 37 ML/MIN
[2023-10-02] MEDS: dextrose 50%-water 50ml dispensing syringe IV ONE (07:02)
[2023-10-02 08:00] VITALS: RESP 18; O2SAT 98
[2023-10-02] MEDS: enoxaparin 40mg/0.4ml syringe SUBCUT SCH (08:00)
[2023-10-02 10:00] VITALS: BP 105/76; PULSE 125; RESP 18; TEMP 98.6; O2SAT 95
[2023-10-02] MEDS: CefTRIAXone/D5W-Rocephin 1gm 50 ML IV SCH (10:02)
[2023-10-02] MEDS: haloperidol lactate 5mg/ml inj IM ONE (13:16)
[2023-10-02] MEDS ORDERED: glucagon, human recombinant 1mg kit SUBCUT PRN ×2 (13:50)
[2023-10-02] MEDS ORDERED: dextrose 50%-water 50ml dispensing syringe IV PRN ×3 (13:50)
[2023-10-02] MEDS ORDERED: DEXTROSE 15 GM of carb/4 tabs (each vial/BOTTLE has 4 tablets) PO PRN ×3 (13:50)
[2023-10-02] MEDS ORDERED: haloperidol lactate 5mg/ml inj IM PRN (13:55)
[2023-10-02] MEDS: dextrose 50%-water 50ml dispensing syringe IV PRN (14:10)
[2023-10-02] MEDS: dextrose 5%-lactated ringers 1,000 ML IV SCH (14:28)
[2023-10-02 16:27] LABS: HEMOGLOBIN A1C 4.9 % (4.5-6.2)
[2023-10-02 22:00] VITALS: BP 129/69; PULSE 100; RESP 16; TEMP 96.7; O2SAT 98
[2023-10-03 06:15] LABS: BASOPHILS % (AUTO) 0.5 % (0-1); EOSINOPHILS # (AUTO) 0.3 X10'3 (0-0.9); EOSINOPHILS % (AUTO) 3.7 % (0-6); HEMATOCRIT 29.1 % (35.0-45.0); HEMOGLOBIN 9.4 g/dl (12.0-16.0); LYMPHOCYTES # (AUTO) 0.9 X10'3 (1.1-4.8); LYMPHOCYTES % (AUTO) 11.9 % (21-51); MEAN CORPUSCULAR HEMOGLOBIN 27.8 PG (27.0-31.0); MEAN CORPUSCULAR HGB CONC 32.4 g/dL (33.0-36.5); MEAN CORPUSCULAR VOLUME 85.8 FL (78-98); MEAN PLATELET VOLUME 7.2 FL (7.4-10.4); MONOCYTES % (AUTO) 12.9 % (2-12); NEUTROPHILS # (AUTO) 5.4 X10'3 (1.8-7.7); PLATELET COUNT 346 X10'3 (140-440); RED BLOOD COUNT 3.39 X10'6 (4.20-5.60); RED CELL DISTRIBUTION WIDTH 16.3 % (11.5-14.5); WHITE BLOOD COUNT 7.6 X10'3 (4.5-11.0)
[2023-10-03 06:41] LABS: ALANINE AMINOTRANSFERASE 11 U/L (12-78); ALBUMIN 1.8 G/DL (3.4-5.0); ALBUMIN/GLOBULIN RATIO 0.4 (1.1-1.5); ALKALINE PHOSPHATASE 83 IU/L (46-116); ANION GAP 8 (8-16); ASPARTATE AMINO TRANSFERASE 25 U/L (10-37); BILIRUBIN,TOTAL 0.3 MG/DL (0.1-1.0); BLOOD UREA NITROGEN 17 MG/DL (7-18); BUN/CREATININE RATIO 12.6 (10.0-20.0); CALCIUM 8.5 MG/DL (8.5-10.1); CHLORIDE 113 MMOL/L (99-107); CREATININE 1.35 MG/DL (0.40-0.90); GLUCOSE 95 MG/DL (70-104); POTASSIUM 3.5 MMOL/L (3.5-5.1); SODIUM 142 MMOL/L (135-145); THYROID STIMULATING HORMONE 5.26 ulU/ml (0.34-4.50); TOTAL CARBON DIOXIDE 20.8 MMOL/L (24-32); TOTAL PROTEIN 6.4 G/DL (6.4-8.2); eCRCL 43 ML/MIN; eGFR 42 ML/MIN
[2023-10-03 18:00] VITALS: BP 94/60; PULSE 83; RESP 14; TEMP 97; O2SAT 99
[2023-10-03] MEDS: lactose-reduced food (Ensure High Protein) 237ml bottle PO SCH (18:10)
[2023-10-03 22:00] VITALS: BP 101/39; PULSE 94; RESP 16; TEMP 97.9; O2SAT 99
[2023-10-04 06:00] VITALS: BP 132/80; PULSE 84; RESP 18; TEMP 97.7; O2SAT 90
[2023-10-04 06:29] LABS: CHLAMYDIA TRACHOMATIS, NAA Negative (Negative)
[2023-10-04 07:34] LABS: BASOPHILS % (AUTO) 0.4 % (0-1); EOSINOPHILS # (AUTO) 0.2 X10'3 (0-0.9); EOSINOPHILS % (AUTO) 2.5 % (0-6); HEMATOCRIT 28.4 % (35.0-45.0); HEMOGLOBIN 9.3 g/dl (12.0-16.0); LYMPHOCYTES # (AUTO) 1.2 X10'3 (1.1-4.8); LYMPHOCYTES % (AUTO) 13.1 % (21-51); MEAN CORPUSCULAR HEMOGLOBIN 27.8 PG (27.0-31.0); MEAN CORPUSCULAR HGB CONC 32.6 g/dL (33.0-36.5); MEAN CORPUSCULAR VOLUME 85.1 FL (78-98); MEAN PLATELET VOLUME 7.6 FL (7.4-10.4); MONOCYTES # (AUTO) 1.2 X10'3 (0-0.9); MONOCYTES % (AUTO) 12.6 % (2-12); NEUTROPHILS # (AUTO) 6.7 X10'3 (1.8-7.7); NEUTROPHILS % (AUTO) 71.4 % (42-75); PLATELET COUNT 406 X10'3 (140-440); RED BLOOD COUNT 3.34 X10'6 (4.20-5.60); RED CELL DISTRIBUTION WIDTH 16.3 % (11.5-14.5); WHITE BLOOD COUNT 9.4 X10'3 (4.5-11.0)
[2023-10-04 08:00] LABS: ALANINE AMINOTRANSFERASE 10 U/L (12-78); ALBUMIN 1.8 G/DL (3.4-5.0); ALBUMIN/GLOBULIN RATIO 0.4 (1.1-1.5); ALKALINE PHOSPHATASE 83 IU/L (46-116); ANION GAP 9 (8-16); ASPARTATE AMINO TRANSFERASE 17 U/L (10-37); BILIRUBIN,TOTAL 0.2 MG/DL (0.1-1.0); BLOOD UREA NITROGEN 16 MG/DL (7-18); CALCIUM 8.4 MG/DL (8.5-10.1); CHLORIDE 112 MMOL/L (99-107); CREATININE 1.23 MG/DL (0.40-0.90); FREE T4 (FREE THYROXINE) 1.12 NG/DL (0.73-1.40); GLUCOSE 90 MG/DL (70-104); POTASSIUM 3.3 MMOL/L (3.5-5.1); SODIUM 142 MMOL/L (135-145); TOTAL CARBON DIOXIDE 20.8 MMOL/L (24-32); TOTAL PROTEIN 6.4 G/DL (6.4-8.2); eCRCL 47 ML/MIN; eGFR 46 ML/MIN
[2023-10-04] MEDS: potassium Cl 20 mEq SR tablet PO PRN (08:10)
[2023-10-04 10:00] VITALS: BP 137/50; PULSE 69; RESP 17; TEMP 98.2; O2SAT 98
[2023-10-04] MEDS ORDERED: NYSTATIN 30 GM POWDER TP SCH (13:00)
[2023-10-04] MEDS: fluconazole 100mg tablet PO ONE (13:25)
[2023-10-04] MEDS: nystatin 15 GM powder TP SCH (16:42)
[2023-10-04 18:00] VITALS: BP 114/60; PULSE 54; RESP 16; TEMP 97.8; O2SAT 92
[2023-10-04] MEDS: busPIRone 5mg tablet PO SCH (21:01)
[2023-10-04 22:00] VITALS: BP 155/77; PULSE 93; RESP 24; TEMP 97.6; O2SAT 96
[2023-10-05 06:00] VITALS: BP 132/75; PULSE 91; RESP 18; TEMP 97.7; O2SAT 99
[2023-10-05 07:14] LABS: BASOPHILS # (AUTO) 0.1 X10'3 (0-0.2); BASOPHILS % (AUTO) 0.6 % (0-1); EOSINOPHILS # (AUTO) 0.2 X10'3 (0-0.9); EOSINOPHILS % (AUTO) 2.1 % (0-6); HEMATOCRIT 30.5 % (35.0-45.0); HEMOGLOBIN 9.7 g/dl (12.0-16.0); LYMPHOCYTES # (AUTO) 1.7 X10'3 (1.1-4.8); LYMPHOCYTES % (AUTO) 18.9 % (21-51); MEAN CORPUSCULAR HEMOGLOBIN 27.5 PG (27.0-31.0); MEAN CORPUSCULAR HGB CONC 31.8 g/dL (33.0-36.5); MEAN CORPUSCULAR VOLUME 86.6 FL (78-98); MEAN PLATELET VOLUME 7.5 FL (7.4-10.4); MONOCYTES # (AUTO) 1.2 X10'3 (0-0.9); MONOCYTES % (AUTO) 13.4 % (2-12); PLATELET COUNT 434 X10'3 (140-440); RED BLOOD COUNT 3.52 X10'6 (4.20-5.60); RED CELL DISTRIBUTION WIDTH 16.5 % (11.5-14.5); WHITE BLOOD COUNT 9.2 X10'3 (4.5-11.0)
[2023-10-05 07:26] LABS: ALANINE AMINOTRANSFERASE 11 U/L (12-78); ALBUMIN 1.9 G/DL (3.4-5.0); ALBUMIN/GLOBULIN RATIO 0.4 (1.1-1.5); ALKALINE PHOSPHATASE 87 IU/L (46-116); ANION GAP 9 (8-16); ASPARTATE AMINO TRANSFERASE 18 U/L (10-37); BILIRUBIN,TOTAL 0.2 MG/DL (0.1-1.0); BLOOD UREA NITROGEN 16 MG/DL (7-18); BUN/CREATININE RATIO 13.9 (10.0-20.0); CALCIUM 8.7 MG/DL (8.5-10.1); CHLORIDE 112 MMOL/L (99-107); CREATININE 1.15 MG/DL (0.40-0.90); GLUCOSE 72 MG/DL (70-104); SODIUM 142 MMOL/L (135-145); TOTAL CARBON DIOXIDE 20.9 MMOL/L (24-32); TOTAL PROTEIN 6.7 G/DL (6.4-8.2); eCRCL 50 ML/MIN; eGFR 50 ML/MIN
[2023-10-05] MEDS: DEXTROSE 15 GM of carb/4 tabs (each vial/BOTTLE has 4 tablets) PO PRN (08:01)
[2023-10-05] MEDS: citalopram 20mg tablet PO SCH (08:02)
[2023-10-05 08:04] LABS: TOTAL CELLS COUNTED 100
[2023-10-05 08:05] LABS: ANISOCYTOSIS 1+; PLATELET ESTIMATE NORMAL
[2023-10-05] MEDS: busPIRone 5mg tablet PO SCH (14:59)
[2023-10-05 18:00] VITALS: BP 141/58; PULSE 92; RESP 15; TEMP 97.7; O2SAT 99
[2023-10-05 20:00] VITALS: RESP 17; O2SAT 98
[2023-10-05 22:00] VITALS: BP 109/69; PULSE 79; RESP 16; TEMP 98.1; O2SAT 98
[2023-10-06 07:00] LABS: BASOPHILS # (AUTO) 0.1 X10'3 (0-0.2); BASOPHILS % (AUTO) 0.6 % (0-1); EOSINOPHILS # (AUTO) 0.2 X10'3 (0-0.9); EOSINOPHILS % (AUTO) 2.1 % (0-6); HEMATOCRIT 31.1 % (35.0-45.0); LYMPHOCYTES # (AUTO) 1.4 X10'3 (1.1-4.8); MEAN CORPUSCULAR HEMOGLOBIN 28.2 PG (27.0-31.0); MEAN CORPUSCULAR HGB CONC 32.2 g/dL (33.0-36.5); MEAN CORPUSCULAR VOLUME 87.5 FL (78-98); MEAN PLATELET VOLUME 7.1 FL (7.4-10.4); MONOCYTES # (AUTO) 1.1 X10'3 (0-0.9); MONOCYTES % (AUTO) 12.2 % (2-12); NEUTROPHILS # (AUTO) 6.1 X10'3 (1.8-7.7); NEUTROPHILS % (AUTO) 69.1 % (42-75); PLATELET COUNT 457 X10'3 (140-440); RED BLOOD COUNT 3.56 X10'6 (4.20-5.60); RED CELL DISTRIBUTION WIDTH 16.5 % (11.5-14.5); WHITE BLOOD COUNT 8.8 X10'3 (4.5-11.0)
[2023-10-06 07:24] LABS: ALANINE AMINOTRANSFERASE 10 U/L (12-78); ALBUMIN/GLOBULIN RATIO 0.4 (1.1-1.5); ALKALINE PHOSPHATASE 95 IU/L (46-116); ANION GAP 14 (8-16); ASPARTATE AMINO TRANSFERASE 23 U/L (10-37); BILIRUBIN,TOTAL 0.3 MG/DL (0.1-1.0); BLOOD UREA NITROGEN 16 MG/DL (7-18); BUN/CREATININE RATIO 14.2 (10.0-20.0); CALCIUM 8.5 MG/DL (8.5-10.1); CHLORIDE 109 MMOL/L (99-107); CREATININE 1.13 MG/DL (0.40-0.90); GLUCOSE 77 MG/DL (70-104); POTASSIUM 4.1 MMOL/L (3.5-5.1); SODIUM 144 MMOL/L (135-145); TOTAL CARBON DIOXIDE 21.4 MMOL/L (24-32); TOTAL PROTEIN 6.9 G/DL (6.4-8.2); eCRCL 51 ML/MIN; eGFR 51 ML/MIN
[2023-10-06 07:35] LABS: ANISOCYTOSIS 1+; PLATELET ESTIMATE INCREASED; TOTAL CELLS COUNTED 100
[2023-10-06] MEDS: sertraline 50mg tablet PO SCH (08:33)
[2023-10-06 11:00] VITALS: BP 132/89; PULSE 95; RESP 20; TEMP 97.2; O2SAT 97
[2023-10-06] MEDS: lactose-reduced food (Ensure Enlive) - 237ml bottle PO SCH (13:27)
[2023-10-06] MEDS: risperiDONE 0.5mg tablet PO ONE (15:48)
[2023-10-06 17:02] VITALS: RESP 16
[2023-10-06 20:00] VITALS: RESP 17; O2SAT 98
[2023-10-06] MEDS: busPIRone 5mg tablet PO SCH (21:00)
[2023-10-06 22:00] VITALS: BP 96/64; PULSE 85; RESP 18; TEMP 97.9; O2SAT 99
[2023-10-07 06:21] VITALS: BP 124/71; PULSE 85; RESP 16; TEMP 97.4; O2SAT 99
[2023-10-07 10:00] VITALS: BP 94/58; PULSE 84; RESP 16; TEMP 97.5; O2SAT 99
[2023-10-07 18:00] VITALS: BP 128/68; PULSE 93; RESP 18; TEMP 97.9; O2SAT 97
[2023-10-07 20:00] VITALS: RESP 18; O2SAT 98
[2023-10-07] MEDS: risperiDONE 0.25mg tablet PO SCH (20:33)
[2023-10-07 22:00] VITALS: BP 99/61; PULSE 94; RESP 16; TEMP 96.9; O2SAT 98
[2023-10-08 02:17] LABS: BASOPHILS # (AUTO) 0.1 X10'3 (0-0.2); BASOPHILS % (AUTO) 0.9 % (0-1); EOSINOPHILS # (AUTO) 0.2 X10'3 (0-0.9); EOSINOPHILS % (AUTO) 2.6 % (0-6); HEMATOCRIT 28.9 % (35.0-45.0); HEMOGLOBIN 9.4 g/dl (12.0-16.0); LYMPHOCYTES # (AUTO) 1.5 X10'3 (1.1-4.8); MEAN CORPUSCULAR HEMOGLOBIN 27.3 PG (27.0-31.0); MEAN CORPUSCULAR HGB CONC 32.5 g/dL (33.0-36.5); MEAN CORPUSCULAR VOLUME 84.1 FL (78-98); MEAN PLATELET VOLUME 7.5 FL (7.4-10.4); MONOCYTES # (AUTO) 1.1 X10'3 (0-0.9); MONOCYTES % (AUTO) 14.5 % (2-12); PLATELET COUNT 399 X10'3 (140-440); RED BLOOD COUNT 3.44 X10'6 (4.20-5.60); RED CELL DISTRIBUTION WIDTH 16.5 % (11.5-14.5); WHITE BLOOD COUNT 7.9 X10'3 (4.5-11.0)
[2023-10-08 02:43] LABS: ALANINE AMINOTRANSFERASE 8 U/L (12-78); ALBUMIN/GLOBULIN RATIO 0.4 (1.1-1.5); ALKALINE PHOSPHATASE 95 IU/L (46-116); ANION GAP 10 (8-16); ASPARTATE AMINO TRANSFERASE 13 U/L (10-37); BILIRUBIN,TOTAL 0.2 MG/DL (0.1-1.0); BLOOD UREA NITROGEN 19 MG/DL (7-18); BUN/CREATININE RATIO 17.8 (10.0-20.0); CALCIUM 8.5 MG/DL (8.5-10.1); CHLORIDE 110 MMOL/L (99-107); CREATININE 1.07 MG/DL (0.40-0.90); GLUCOSE 86 MG/DL (70-104); POTASSIUM 3.9 MMOL/L (3.5-5.1); SODIUM 142 MMOL/L (135-145); TOTAL CARBON DIOXIDE 21.7 MMOL/L (24-32); TOTAL PROTEIN 6.9 G/DL (6.4-8.2); eCRCL 54 ML/MIN; eGFR 54 ML/MIN
[2023-10-08 06:00] VITALS: BP 104/66; PULSE 97; RESP 16; TEMP 96.8; O2SAT 98
[2023-10-08 10:00] VITALS: BP 93/61; PULSE 91; RESP 16; TEMP 97.6; O2SAT 99
[2023-10-08 22:00] VITALS: BP 116/67; PULSE 97; RESP 16; TEMP 95.7; O2SAT 98
[2023-10-08] MEDS: risperiDONE 0.5mg tablet PO SCH (23:20)
[2023-10-09 06:00] VITALS: BP 98/45; PULSE 86; RESP 16; TEMP 95.5; O2SAT 98
[2023-10-09 08:00] VITALS: RESP 16; O2SAT 98
[2023-10-09] MEDS ORDERED: iohexol 300mg/ml 100ml inj. ONE (10:05)
[2023-10-09 10:30] VITALS: BP 116/59; PULSE 77; RESP 18; TEMP 97.9
[2023-10-09 20:00] VITALS: BP 123/70; PULSE 84; RESP 13; TEMP 97.5; O2SAT 100
[2023-10-10 06:00] VITALS: BP 114/66; PULSE 77; RESP 16; TEMP 98.3; O2SAT 98
[2023-10-10] MEDS: CefTRIAXone 2gm/D5W 50ml BAG 50 ML IV SCH (07:54)
[2023-10-10 09:30] VITALS: RESP 18
[2023-10-10 10:00] VITALS: BP 104/58; PULSE 82; RESP 16; TEMP 97.5; O2SAT 98
[2023-10-10 18:00] VITALS: BP 111/74; PULSE 88; RESP 16; TEMP 98.1; O2SAT 99
[2023-10-10 22:00] VITALS: BP 104/68; PULSE 85; RESP 18; TEMP 96.5; O2SAT 100
[2023-10-11 05:45] LABS: PROTHROMBIN TIME 10.7 SECONDS (9.0-12.0)
[2023-10-11 05:46] LABS: BASOPHILS % (AUTO) 0.6 % (0-1); EOSINOPHILS # (AUTO) 0.1 X10'3 (0-0.9); EOSINOPHILS % (AUTO) 1.8 % (0-6); HEMATOCRIT 27.2 % (35.0-45.0); HEMOGLOBIN 8.8 g/dl (12.0-16.0); LYMPHOCYTES # (AUTO) 1.2 X10'3 (1.1-4.8); MEAN CORPUSCULAR HEMOGLOBIN 27.6 PG (27.0-31.0); MEAN CORPUSCULAR HGB CONC 32.2 g/dL (33.0-36.5); MEAN CORPUSCULAR VOLUME 85.6 FL (78-98); MEAN PLATELET VOLUME 8.4 FL (7.4-10.4); MONOCYTES # (AUTO) 0.9 X10'3 (0-0.9); MONOCYTES % (AUTO) 13.6 % (2-12); NEUTROPHILS # (AUTO) 4.5 X10'3 (1.8-7.7); PLATELET COUNT 294 X10'3 (140-440); RED BLOOD COUNT 3.18 X10'6 (4.20-5.60); RED CELL DISTRIBUTION WIDTH 16.6 % (11.5-14.5); WHITE BLOOD COUNT 6.9 X10'3 (4.5-11.0)
[2023-10-11 05:57] LABS: ALANINE AMINOTRANSFERASE 10 U/L (12-78); ALBUMIN 1.8 G/DL (3.4-5.0); ALBUMIN/GLOBULIN RATIO 0.4 (1.1-1.5); ALKALINE PHOSPHATASE 80 IU/L (46-116); ANION GAP 10 (8-16); ASPARTATE AMINO TRANSFERASE 12 U/L (10-37); BILIRUBIN,TOTAL 0.2 MG/DL (0.1-1.0); BLOOD UREA NITROGEN 16 MG/DL (7-18); BUN/CREATININE RATIO 17.2 (10.0-20.0); CALCIUM 8.1 MG/DL (8.5-10.1); CHLORIDE 109 MMOL/L (99-107); CREATININE 0.93 MG/DL (0.40-0.90); GLUCOSE 79 MG/DL (70-104); POTASSIUM 3.5 MMOL/L (3.5-5.1); SODIUM 145 MMOL/L (135-145); TOTAL CARBON DIOXIDE 25.8 MMOL/L (24-32); TOTAL PROTEIN 6.1 G/DL (6.4-8.2); eCRCL 62 ML/MIN; eGFR 64 ML/MIN
[2023-10-11 07:09] VITALS: BP 116/67; PULSE 73; RESP 16; TEMP 97; O2SAT 98
[2023-10-11 07:10] VITALS: RESP 16
[2023-10-11 12:51] VITALS: BP 92/61; PULSE 88; RESP 15; TEMP 98.2; O2SAT 99
[2023-10-11 17:12] LABS: URINE AMPHETAMINE SCREEN NEGATIVE (Neg); URINE BARBITUATE SCREEN NEGATIVE (Neg); URINE BENZODIAZEPINES SCREEN NEGATIVE (Neg); URINE CANNABINOID SCREEN POSITIVE (Neg); URINE COCAINE SCREEN NEGATIVE (Neg); URINE METHADONE SCREEN NEGATIVE (Neg); URINE OPIATE SCREEN NEGATIVE (Neg); URINE PHENCYCLIDINE SCREEN NEGATIVE (Neg)
[2023-10-11 18:00] VITALS: BP 108/63; PULSE 89; RESP 16; TEMP 98.2; O2SAT 98
[2023-10-11 20:00] VITALS: RESP 16
[2023-10-11 22:00] VITALS: BP 135/72; PULSE 103; RESP 18; TEMP 98.2; O2SAT 98
[2023-10-12] MEDS: LORazepam 0.5 MG tablet PO PRN (00:01)
[2023-10-12 08:00] VITALS: RESP 16; O2SAT 97
[2023-10-12 10:00] VITALS: BP 100/60; PULSE 78; RESP 16; TEMP 97.6; O2SAT 97
[2023-10-12 18:00] VITALS: BP 103/66; PULSE 74; RESP 16; TEMP 97.8; O2SAT 96
[2023-10-12 20:00] VITALS: RESP 16; O2SAT 96
[2023-10-12 22:00] VITALS: BP 91/64; PULSE 91; RESP 16; TEMP 98.2; O2SAT 97
[2023-10-13] MEDS: normal saline 1000ml 1,000 ML IV SCH (05:56)
[2023-10-13] MEDS: normal saline 500ml IV soln 500 ML IV ONE (05:57)
[2023-10-13 06:00] VITALS: BP 87/48; PULSE 88; RESP 17; TEMP 98.1; O2SAT 98
[2023-10-13 07:24] VITALS: BP 94/57; PULSE 90
[2023-10-13 10:00] VITALS: BP 85/55; PULSE 87; RESP 12; TEMP 97.5; O2SAT 98
[2023-10-13 18:00] VITALS: BP 96/60; PULSE 60; RESP 15; TEMP 97.7; O2SAT 99
[2023-10-13 22:00] VITALS: BP 104/68; PULSE 90; RESP 16; TEMP 98.3; O2SAT 99
[2023-10-14] VITALS (7 sets, daily range): BP systolic 93–138; BP diastolic 43–72; PULSE 83–88; RESP 14–18; TEMP 97–98.6; O2SAT 96–99
[2023-10-14] MEDS: risperiDONE 0.5mg tablet PO SCH (20:31)
[2023-10-15 06:00] VITALS: BP 99/61; PULSE 86; RESP 16; TEMP 98.9; O2SAT 94
[2023-10-15 07:36] LABS: BASOPHILS % (AUTO) 0.7 % (0-1); EOSINOPHILS # (AUTO) 0.1 X10'3 (0-0.9); HEMATOCRIT 26.1 % (35.0-45.0); HEMOGLOBIN 8.4 g/dl (12.0-16.0); LYMPHOCYTES # (AUTO) 1.3 X10'3 (1.1-4.8); LYMPHOCYTES % (AUTO) 20.5 % (21-51); MEAN CORPUSCULAR HEMOGLOBIN 28.1 PG (27.0-31.0); MEAN CORPUSCULAR HGB CONC 32.2 g/dL (33.0-36.5); MEAN CORPUSCULAR VOLUME 87.3 FL (78-98); MEAN PLATELET VOLUME 8.8 FL (7.4-10.4); MONOCYTES # (AUTO) 0.8 X10'3 (0-0.9); MONOCYTES % (AUTO) 13.6 % (2-12); NEUTROPHILS # (AUTO) 3.9 X10'3 (1.8-7.7); NEUTROPHILS % (AUTO) 63.2 % (42-75); PLATELET COUNT 228 X10'3 (140-440); RED BLOOD COUNT 2.99 X10'6 (4.20-5.60); RED CELL DISTRIBUTION WIDTH 16.8 % (11.5-14.5); WHITE BLOOD COUNT 6.2 X10'3 (4.5-11.0)
[2023-10-15 08:10] LABS: ALANINE AMINOTRANSFERASE 10 U/L (12-78); ALBUMIN 1.8 G/DL (3.4-5.0); ALBUMIN/GLOBULIN RATIO 0.4 (1.1-1.5); ALKALINE PHOSPHATASE 69 IU/L (46-116); ANION GAP 8 (8-16); ASPARTATE AMINO TRANSFERASE 13 U/L (10-37); BILIRUBIN,TOTAL 0.1 MG/DL (0.1-1.0); BLOOD UREA NITROGEN 18 MG/DL (7-18); BUN/CREATININE RATIO 20.5 (10.0-20.0); CALCIUM 8.1 MG/DL (8.5-10.1); CHLORIDE 109 MMOL/L (99-107); CREATININE 0.88 MG/DL (0.40-0.90); GLUCOSE 82 MG/DL (70-104); POTASSIUM 4.3 MMOL/L (3.5-5.1); SODIUM 142 MMOL/L (135-145); TOTAL CARBON DIOXIDE 24.8 MMOL/L (24-32); eCRCL 66 ML/MIN; eGFR 68 ML/MIN
[2023-10-15] MEDS ORDERED: RISP0.5T74 PO (10:11)
[2023-10-15] MEDS ORDERED: SERT-433 PO (10:11)
[2023-10-15] MEDS ORDERED: MULT-25 PO (10:11)
[2023-10-15] MEDS ORDERED: BUSP5TAB26 PO (10:11)
== END 2023-10-15 17:02 | disposition home health service (06) | DRG 720 ==
LOC: ER 13:27 → ED HOLD 17:19 → EDBEDREQ 20:51 → ORTHO 4S 22:50
PROVIDERS: ADMIT Family Medicine; ATTEND Family Medicine
PROC: BW211ZZ Computerized Tomography (CT Scan) of Abdomen and Pelvis using Low Osmolar Contrast (ICD-10-PCS; principal; 2023-10-09)
DX: A41.59 Other Gram-negative sepsis (principal); G93.41 Metabolic encephalopathy; E46 Unspecified protein-calorie malnutrition; E87.20 Acidosis, unspecified; S36.113A Laceration of liver, unspecified degree, initial encounter; N17.9 Acute kidney failure, unspecified; F33.1 Major depressive disorder, recurrent, moderate; E11.649 Type 2 diabetes mellitus with hypoglycemia without coma; R45.851 Suicidal ideations; F41.9 Anxiety disorder, unspecified; F12.10 Cannabis abuse, uncomplicated; N13.6 Pyonephrosis; E03.8 Other specified hypothyroidism; I16.0 Hypertensive urgency; E87.1 Hypo-osmolality and hyponatremia; F15.159 Other stimulant abuse with stimulant-induced psychotic disorder, unspecified; G82.20 Paraplegia, unspecified; S31.000A Unspecified open wound of lower back and pelvis without penetration into retroperitoneum, initial encounter; E87.6 Hypokalemia; X58.XXXA Exposure to other specified factors, initial encounter; Y93.89 Activity, other specified; Y92.89 Other specified places as the place of occurrence of the external cause; Y99.8 Other external cause status; Z74.01 Bed confinement status; Z68.1 Body mass index [BMI] 19.9 or less, adult; Z87.440 Personal history of urinary (tract) infections; Z88.0 Allergy status to penicillin; Z88.5 Allergy status to narcotic agent; Z90.49 Acquired absence of other specified parts of digestive tract
CPT/HCPCS: 36415; 74177; 76700; 76770; 80053; 80305; 80320; 81001; 82948; 83036; 83525; 84439; 84443; 85007; 85025; 85610; 87077; 87081; 87088; 87186; 87491; 96365; 97110; 97161; 97530; 99285; A6212; A6213; A6223; A6250; A6258; A6402; A6449; C1758; G0378; J0696; J1630; J1650; J1956; J3480; J3490; J7030; J7040; J7042; J7070; J7121; Q9967